=== PATIENT | male | born 1945 | race Caucasian/White ===

== ENCOUNTER 2016-12-14 18:20 | Emergency (ER) | payer MEDICARE ==
[~2016-12-14] VITALS: Ht 188 cm; Wt 65.3 kg
--- NOTE | 2016-12-14 19:53 | NUR ---
I got a call that ER team had been called. Got here at 7:05. Pt had fallen and was having trouble breathing. His and son with him. Had prayer with them and talked with family members in waiting room. Pt is a life-long smoker who has never seen a doctor. Stayed with family until pt life flighted to [facility]. Prayed with them and life flight crew. Son and were going to go up to [facility].
== END 2016-12-14 20:09 | disposition short-term general hospital (02) ==
LOC: ED 18:20
DX: S06.5X9A Traumatic subdural hemorrhage with loss of consciousness of unspecified duration, initial encounter (principal); R40.4 Transient alteration of awareness; W18.09XA Striking against other object with subsequent fall, initial encounter; Y93.9 Activity, unspecified; Y92.9 Unspecified place or not applicable; Y99.9 Unspecified external cause status; F17.210 Nicotine dependence, cigarettes, uncomplicated; F10.20 Alcohol dependence, uncomplicated; Y90.0 Blood alcohol level of less than 20 mg/100 ml
CPT/HCPCS: 31500; 31720; 70450; 71010; 80053; 81001; 84484; 85025; 85610; 85730; 94799; 96374; 96375; 99291; G0480; J2060; J2405; J2704

== ENCOUNTER 2018-07-21 10:03 | Inpatient (IN) | payer MEDICARE ==
[~2018-07-21] VITALS: Ht 188 cm; Wt 71.2 kg
[2018-07-21] MEDS ORDERED: DAILY MULTIPLE1 EACH PO (11:49)
[2018-07-21] MEDS ORDERED: FOLIC ACID-VIT1 EAC1 PO (11:51)
[2018-07-21] MEDS ORDERED: OMEPRAZOLE20 MG PO (11:51)
[2018-07-21] MEDS ORDERED: VITAMIN B-1100 M1 PO (11:52)
[2018-07-21] MEDS ORDERED: VITAMIN C500 M5 PO (11:53)
[2018-07-21] MEDS ORDERED: MELADOX3 MG PO (11:53)
[2018-07-21] MEDS ORDERED: FIBER0.52 GM PO (11:53)
[2018-07-21] MEDS ORDERED: FLOMAX0.4 MG PO (11:55)
[2018-07-21] MEDS ORDERED: CITALOPRAM HBR20 MG PO (11:56)
--- NOTE | 2018-07-21 13:38 | NUR ---
IV SITE INTACT, NO REDNESS OR SWELLING NOTED, PT DENIES PAIN AT SITE, FLUSHES EASILY. PT IS ALERT AND ORIENTED X4. PT RATES PAIN AT 3/10 IN RT HIP. PT ABLE TO ANSWER QUESTIONS EASILY. PT DENIES NAUSEA AND SOB AT THIS TIME.
--- NOTE | 2018-07-21 15:05 | NUR ---
CALLED TO CLARIFY IF BUCKS TRACTION NEEDED FOR PT. ORDER GIVEN TO PLACE BUCKS TRACTION FOR 5 TO 10 LBS.
--- NOTE | 2018-07-21 15:21 | NUR ---
BUCKS TRACTION IN PLACE WITH 10 LB OF WEIGHT. PT YOLETTE WELL HOWEVER REQUESTS PAIN MEDICATION FOR 5/10 RT HIP PAIN. 0.5 MG IV DILAUDID GIVEN. PT ALERT AND ORIENTED X4. PT DENIES NAUSEA AND SOB AT THIS TIME.
--- NOTE | 2018-07-21 16:01 | NUR ---
PT REPORTS PAIN IS NOW AT 2/10, STATES THIS IS ACCEPTABLE FOR HIM.
--- NOTE | 2018-07-21 16:50 | NUR ---
MED REC COMPLETE
--- NOTE | 2018-07-21 17:05 | NUR ---
PT WAS EXPECTING TO RETURN HOME UPON DC, BUT WE DISCUSSED THAT WOULD DEPEND ON HOW WELL HE IS DOING AND WHETHER HE IS WT BEARING OR NOT. HE STATES HIS IS AN INVALID AND IS CURRENTLY STAYING AT AN AUNTS HOUSE SHE IS UNABLE TO CARE FOR HERSELF OR HIM. THEN HE SAID WELL I'LL JUST GO HOME AND MY CAN HELP ME. THEN SAID WELL BRADEN SHE IS HAVING TO STAY WITH HER AUNT I GUESS I CAN'T GO HOME THEN. WE DISCUSSED SNF PLACEMENT AND HE SEEMS AMEENABLE TO THAT..
--- NOTE | 2018-07-21 17:47 | NUR ---
YULIANA HOSE IN PLACE ON BILAT LEGS, SCD ON LEFT LOW LEG WITH HEAL PROTECTOR. RT LEG IN BUCKS TRACTION. PT PREMEDICATED WITH 0.5 MG IV DILAUDID PRIOR TO PLACING YULIANA HOSE. PT REPORTS SOME RELIEF WITH THE BUCKS TRACTION IN PLACE. PT KNEES LOCKED OUT ON BED. PT REPOSITIONED UP IN BED FOR DINNER. PT WELL ABLE TO USE CALL LIGHT, REMAINS ALERT AND ORIENTED X4.
--- NOTE | 2018-07-21 17:55 | NUR ---
PT SITTING UP IN BED EATING DINNER AND WATCHING TV.
--- NOTE | 2018-07-21 19:28 | NUR ---
3% SALINE SOLUTION IS OFF AT THIS TIME.
--- NOTE | 2018-07-21 19:46 | NUR ---
PATIENT IS RESTFUL WATCHING TV, BREATHING IS EVEN AND UNLABORED. REPORTS 1/10 PAIN IN RIGHT HIP AND STATES "I AM FEELING PRETTY GOOD RIGHT NOW." DENIES NEEDS AT THIS TIME. BUCKS TRACTION IN PLACE TO RIGHT LOWER EXTREMITY, PERIPHERAL PULSES WELL FELT IN BLE, CAP REFILL <3 SECONDS, CMS INTACT. ALERT AND ORIENTED X4. CALL LIGHT WITHIN REACH.
--- NOTE | 2018-07-21 21:01 | NUR ---
PATIENT RESTFUL WITH EYES CLOSED, BREATHING IS EVEN AND UNLABORED, FLACC SCORE OF 0. CALL LIGHT WITHIN REACH.
--- NOTE | 2018-07-21 21:47 | NUR ---
PATIENT IS NOT DRINKING FLUIDS, STATES "I HAVE NEBER BEEN MUCH OF A WATER DRINKER AT HOME. I LIKE TO DRINK ENSURES." PROVIDED ENSURE TO PATIENT, ENCOURAGED FLUID INTAKE DUE TO NO IVF INFUSING, ENCOURAGED TO DRINK WATER WELL, PATIENT IS AGREABLE. DENIES NEEDS AT THIS TIME.
--- NOTE | 2018-07-21 22:05 | NUR ---
RECEIVED TELEPHONE ORDER FROM DR. PURI FOR 3% SALINE TO BE STARTED AGAIN AT 23 CC/HR, TURNED OFF AT 0145, AND REDRAW LABS AT 0200.
--- NOTE | 2018-07-21 22:20 | NUR ---
PATIENT REPORTS 2/10 PAIN IN RIGHT HIP, 0.5 MG IV PRN DILAUDID GIVEN. PATIENT DENIES FURTHER NEEDS. RR 20, BREATHING EVEN AND UNLABORED, SPO2 98% ON ROOM AIR. CALL LIGHT WITHIN REACH.
--- NOTE | 2018-07-21 23:10 | NUR ---
PERIPHERAL PULSES WELL FELT IN ALL EXTREMITIES, CAP REFILL <3 SECONDS, BUCKS TRACTION REMAINS INTACT, NO SWELLING TO RIGHT LEG, CMS INTACT.
--- NOTE | 2018-07-21 23:10 | NUR ---
NOTIFIED DR. PURI THAT PATIENT IS HYPOTENSIVE WITH SYSTOLIC BETWEEN 66 AND 74 AND MAP <50 CONFIRMED WITH MANUAL BP. NOTED THAT PATIENT RECEIVED 0.5 MG IV DIALUDID AT 2217. ORDER FOR 1L LR BOLUS OVER ONE HOUR AND DC IV DILAUDID, DR. PURI STATES HE WILL PUT IN NEW ORDERS FOR PAIN MANAGEMENT. PATIENT IS RESTFUL, BREATHING IS UNLABORED, RR BETWEEN 10 AND 12, SPO2 95% ON ROOM AIR. ORAL TEMPERATURE OF 97.9 NOTED, HR BETWEEN 62 AND 67.
--- NOTE | 2018-07-22 00:30 | NUR ---
BUCKS TRACTION WEIGHT BAGS NOTED TO BE ON GROUND, RIGHT LEG REMAINS IN ALIGNMENT, PATIENT DENIES PAIN, PERIPHERAL PULSES WELL FELT, CMS REMAINS INTACT. WITH ASSISTANCE FROM RADHA STONE AND RADHA ARNOLD, BUCKS TRACTION PLACED BACK IN PROPER POSITION.
--- NOTE | 2018-07-22 01:05 | NUR ---
PATIENT REPORTS 5/10 PAIN IN RIGHT HIP, 5 MG PRN PO OXYCODONE GIVEN. PATIENT DENIES FURTHER NEEDS. BUCKS TRACTION REMAINS IN PROPER POSITION. ANTIEMBOLIC STOCKING TO BLE, SCD AND HEEL PROTECTOR TO LEFT LEG ONLY. 3% SALINE CONTINUES TO INFUSE. CALL LIGHT WITHIN REACH.
--- NOTE | 2018-07-22 02:44 | NUR ---
RESTFUL WITH EYES CLOSED, BREATHING IS EVEN AND UNLABORED, FLACC SCORE OF 0. BUCKS TRACTION REMAINS INTACT. CALL LIGHT WITHIN REACH.
--- NOTE | 2018-07-22 04:15 | NUR ---
NOTIFIED DR. PURI THAT PATIENT HAS SODIUM OF 123, 3% SALINE TO BE STARTED AT 23 CC/HR AGAIN, TURN OFF AT 0745, REDRAW SODIUM AT 0800.
--- NOTE | 2018-07-22 04:30 | NUR ---
PATIENT REPORTS 3/10 PAIN IN RIGHT HIP, PRN 5MG OXYCODONE GIVEN. BUCKS TRACTION REMAINS INTACT AND IN PROPER POSITION. DENIES FURTHER NEEDS. CMS INTACT. CALL LIGHT WITHIN REACH.
--- NOTE | 2018-07-22 06:25 | NUR ---
PATIENT REPORTS 5/10 PAIN IN RIGHT HIP, PRN OXYCODONE GIVEN 5MG. DENIES FURTHER NEEDS AT THIS TIME. BREATHING IS EVEN AND UNLABORED, VITALS WNL. CALL LIGHT WITHIN REACH.
--- NOTE | 2018-07-22 07:53 | EKG ---
[facility] [address] [place] [id number] Signed Normal sinus rhythm Normal ECG No previous ECGs available Confirmed by NAOMI PURI MD ([id number]) on 07/22/2018 7:53:22 AM Electronically Signed By: NAOMI PURI MD 07/22/18 0753 PATIENT NAME: PHOENIX SERNA Electrocardiogram DATE OF : 49 PHYSICIAN: NAOMI PURI MD REPORT #: [id number] REPORT IS CONFIDENTIAL AND NOT TO BE RELEASED WITHOUT AUTHORIZATION
--- NOTE | 2018-07-22 09:47 | NUR ---
CHECKED IN WITH PATIENT AT 0900. PATIENT COMPLAING OF DISCOMFORT IN RIGHT HIP. UNHOOKED PATIENT FROM BUCKS TRACTION AND REPOSITIONED LEG TO SLIGHTLY FLEX WITH A PILLOW UNDER THE KNEE TO RELIEVE PATIENTS DISCOMFORT. PATIENT STATED PAIN WAS AN 8/10. AFTER REPOSITIONING CHECKED PEDAL AND TIBIAL PULSE AFTER REPOSITIONING PULSES WERE STRONG AND THERE WAS GOOD PERFUSION. PATIENT DOES NOT HAVE ANY OTHER QUESTIONS AT THAT TIME. AT 930 FOLLOWED UP WITH PATIENT TO DETERMINE IF REPOSITIONING IMPROVED HIS PAIN. PATIENT STATED HE WAS STILL IN PAIN BUT FEELS THE REPOSITIONG DID HELP. PATIENT DID NOT APPEAR TO BE IN DISTRESS BUT STILL COMPLAINED OF DISCOMFORT. INFORMED RN. PATIENT INFORMED NEXT DOSE OF PAIN MEDICATION WOULD BE GIVEN AT 1030.
--- NOTE | 2018-07-22 09:47 | NUR ---
CALLED FOR CONSULT TO BE PUT IN FOR ANESTHESIA TO PLACE A FACIA BLOCK. CALLED OR CHARGE LEXI, SHE WILL PASS THE CONSULT ON TO SILAS PIERRE.
--- NOTE | 2018-07-22 11:22 | NUR ---
CONTACTED [facility] FOR PATIENT TRANSFER AT 1000. SPOKE WITH RAFIQ GARCIA FOR REPORT. BEFORE TRANSFERRING PATIENT HANNAH ROSEN, CAME UP AND DID A NERVE BLOCK ON PATIENTS RIGHT HIP. PATIENT APPEARED TO TOLERATE WELL AND HAD NO QUESTIONS AFTER MOVING TO [facility]. DISTAL PEDAL PULSE WAS PRESENT AND STRONG. PATIENT WAS IN A POSITIVE MOOD. HE CONTACTED HIS SPOUSE AND CAREGIVER TO LET THEM KNOW OF NEW ROOM LOCATION.
--- NOTE | 2018-07-22 14:44 | NUR ---
1440 RN TO ROOM DUE TO PT CALLING SPINNER FIXER LIGHT, PT REPORTS PAIN IS INCREASING. PT RATES PAIN IN RIGHT HIP 3-4/10, TOLERABLE LEVEL IS 1-2/10. PAIN MEDICATION GIVEN PER EMAR. PT REPORT NUMBNESS IN RIGHT UPPER LEG, EXSPECTED DUE TO BLOCK. CMS WNL. CALL LIGHT WITHIN REACH AND PT DENIES ANY OTHER CONCERNS AT THIS TIME.
--- NOTE | 2018-07-22 15:23 | NUR ---
PT RESTING SUPINE IN BED, STATES HE IS COMFORTABLE. CAP REFILL <1 SECOND TO RIGHT FOOT. SENSATION ALSO INTACT DISTAL TO R FOOT. CALL LIGHT AND H20 IN REACH. VSS
--- NOTE | 2018-07-22 15:50 | NUR ---
Pt given 200 mls of chicken broth and crackers per request. Call light and h20 in reach. no further concerns/needs voiced.
--- NOTE | 2018-07-22 18:03 | NUR ---
PATIENT IN BED ON THE PHONE. CALL LIGHT IN REACH. NO FURTHER NEEDS AT THIS TIME.
--- NOTE | 2018-07-22 18:11 | NUR ---
CALL RECEIVED FROM DR MCDONALD. NEW ORDERS RECEIVED FOR IV ANCEF 2GMS ELECTRICAL ASSISTANT TO OR AND 1GM TRANSANXEMIC ACID IV ELECTRICAL ASSISTANT TO OR. CONSENT FOR RIGHT BIPOLAR HEMIARTHROPLASTY ALSO TO BE PLACED IN CHART. NO FURTHER ORDERS RECEIVED AT THIS TIME. WAS ALSO UPDATED ON NEW LAB RESULT OF 125 FOR SERUM SODIUM AND OF ORDERS BY DR PURI FOR IV SALINE 3% AT 23ML/HR TO RUN THROUGH 1944.
--- NOTE | 2018-07-22 18:47 | NUR ---
Pt resting supine in bed with hob elevated to semi fowlers. Per pt request right heel protector removed and right LE floated on pillow and pt states he is comfortable. blanket provided per pt request. distal cms intact to right foot. Pt continues to refuse bucks traction as he states it is not comfortable. family at bedside.
--- NOTE | 2018-07-22 19:20 | NUR ---
RECEIVED REPORT FROM RADHA CONROY. pt ALERT AND AWAKE. REQUESTED ASSISTANCE ADJUSTING RIGHT LEG FOR COMFORT. DENIES PAIN AT THIS TIME. RADHA CROUCH PLACED NEW IV. CALL LIGHT WITHIN REACH
--- NOTE | 2018-07-22 19:53 | NUR ---
pt REQUESTED PRN PAIN PILL FOR 2/10 PAIN, GIVEN (SEE MAR). CALL LIGHT WITHIN REACH.
--- NOTE | 2018-07-22 20:31 | NUR ---
PER PT REQUEST WE BOOSTED HIM UP IN HIS BED. HE WANTS NOTHING MORE AT THIS TIME. CALL LIGHT IN REACH.
--- NOTE | 2018-07-22 20:33 | NUR ---
HELPED BOOST PT IN BED AND FIXED SCD PT SAID IT WAS NOT PUMPING MUCH. CALL LIGHT IS CLOSE AND PT DENIES FURTHER NEEDS.
--- NOTE | 2018-07-22 20:44 | NUR ---
PT CALLED NEEDING HELP FIGURING OUT HOW TO TURN OFF DIFFERENT LIGHTS IN HIS ROOM AND ON THE BED. ASSISTED PT AND HE DENIES FURTHER NEEDS. CALL LIGHT IS CLOSE.
--- NOTE | 2018-07-22 21:28 | NUR ---
RECEIVED CALL FROM DR PURI NEW MEDICATIONS STARTED PER ORDERS (SEE MAR). pt UPDATED ON PLAN OF CARE. CALL LIGHT WITHIN REACH.
--- NOTE | 2018-07-22 21:38 | NUR ---
VITALS AND I&OS DONE AND CHARTED. BEDSIDE TABLE AND CALL LIGHT IN REACH.
--- NOTE | 2018-07-22 21:43 | NUR ---
PT CALLED ME BACK INTO ROOM TO ADJUST HIS FOOT. HE WAS COMFORTABLE WHEN I LEFT THE ROOM,NEEDING NOTHING MORE.
--- NOTE | 2018-07-22 21:44 | NUR ---
PT CALLED [facility] ASKING FOR A WARM BLANKET. I GAVE IT TO HIM. PT NEEDS NOTHING MORE AT THIS TIME.
--- NOTE | 2018-07-22 22:43 | NUR ---
ASSESSMENT DONE. pt ALERT AND ORIENTED, REQUIRED PLAN OF CARE TO BE REPEATED FREQUENTLY. CMS INTACT, CAP REFILL GOOD. REQUIRED RIGHT LEG TO BE ADJUSTED FREQUENTLY. PRN PAIN MED FOR 2/10 PAIN IN RIGHT FOOT (SEE MAR). IVF INFUSING. AES ON RIGHT LEG. AES, SCD, AND HEEL PROTECTOR ON LEFT LEG. CALL LIGHT WITHIN REACH.
--- NOTE | 2018-07-22 23:47 | NUR ---
CALL LIGHT ON. IV PUMP BEEPING, ERROR CLEARED. CALL LIGHT WITHIN REACH. NO REQUESTS AT THIS TIME.
--- NOTE | 2018-07-23 01:05 | NUR ---
CALL LIGHT ON. pt HAD QUESTIONS ABOUT PLAN OF CARE, UPDATED. ALL QUESTIONS ANSWERED.
--- NOTE | 2018-07-23 01:48 | NUR ---
CALL LIGHT ANSWERED, PT REQUESTING RIGHT LEG TO BE REPOSITIONED, LEG REPOSITIONED PER PT'S REQUEST FOR COMFORT, PT C/O 10 PAIN AFTER REPOSITIONING REQUESTING PRN PAIN MEDICATION, PRN PAIN MEDICATION PROVIDED PER EMAR, TOLERATED WELL, EDUCATION PROVIDED REGARDING MEDICATION, PT DENIES FURTHER NEEDS AT THIS TIME, CALL LIGHT WITHIN REACH, FALL PRECAUTIONS IN PLACE.
--- NOTE | 2018-07-23 01:54 | NUR ---
0145 pt SL PER ORDERS. pt NPO AT MIDNIGHT. UPDATED ON PLAN OF CARE. CALL LIGHT WITHIN REACH.
--- NOTE | 2018-07-23 02:59 | NUR ---
CALLED DR PURI WITH LAB RESULTS PER REQUEST. ORDERED 3% SODIUM BE CONTINUED UNTIL 0745 AND LAB WILL REDRAW AT 0800. ORDERS ENTERED.
--- NOTE | 2018-07-23 03:12 | NUR ---
IVF STARTED. pt STATES PAIN IS "BARELY THERE" 06/09. CALL LIGHT WITHIN REACH.
--- NOTE | 2018-07-23 03:19 | NUR ---
CALL LIGHT ON. pt REQUESTED BATHROOM DOOR BE CLOSED, DONE. CALL LIGHT WITHIN REACH.
--- NOTE | 2018-07-23 05:03 | NUR ---
pt RESTED ON AND OFF. DORMAN CATH. NPO AT MIDNIGHT. BED REST FOR FRACTURE. KHUSHI CONSULTING FOR HYPONATREMIA, 3% SODIUM CHLORIDE RUNNING AT 23MLS/HR TO BE FINISHED AT 0745. LAB DRAW AT 0800. [place] INTACT. BLOCK CONTROLLING PAIN WITH PRN PAIN MEDS X2. FORGETFUL. USES CALL LIGHT FREQUENTLY.
--- NOTE | 2018-07-23 06:05 | NUR ---
RETURNED CALL FROM DR MCDONALD. UPDATED ON SODIUM LEVELS. HE WILL REVIEW 0800 LABS. NO NEW ORDERS AT THIS TIME.
--- NOTE | 2018-07-23 06:22 | NUR ---
ADMINISTERED OXYCODONE FOR PAIN. PT DENIES FURTHER NEEDS AND CALL LIGHT IS CLOSE.
--- NOTE | 2018-07-23 07:30 | NUR ---
REPORT RECEIVED FROM RADHA RADFODR. PT RESTING IN BED. DENIES PAIN AND NAUSEA. YULIANA CARLOS AND SCD'S IN PLACE. 3% SODIUM CHLORIDE CONTINUES TO RUN, TO BE STOPPED FOR NEXT LAB DRAW AT 0745. PT VISITING WITH FAMILY. BED RAILS UP. CALL LIGHT WITHIN REACH.
--- NOTE | 2018-07-23 07:45 | NUR ---
3% SODIUM CHLORIDE STOPPED. PIV SALINE LOCKED.
--- NOTE | 2018-07-23 07:53 | NUR ---
MORNING ASSESSMENT AND MEDICAITONS DUE. PT CONTINUES TALKING WITH FAMILY, DENIES PAIN AND NAUSEA. ASSESSMENT DONE. CMS INTACT. PT ORIENTED X4 BUT CONFUSED AND FORGETFUL AT TIMES, UNSURE OF TIME OF DAY, STATES LABS HAVE "NEVER BEEN DONE" AND PT UNABLE TO REMEMBER WHEN HE CAME TO THE HOSPITAL. FAMILY FREQUENTLY CORRECTING PT. PT COMPLIANT WITH CARES AND EASILY REORIENTED. LAB EXPECTED AT 0800 FOR FOLLOW UP LAB DRAW. MEDCATIONS GIVEN WITH A SMALL SIP OF WATER, PT REMAINS OTHERWISE NPO. PT UPDATED ON PLAN OF CARE. PT AND FAMILY VERBALIZE UNDERSTANDING. BILATERAL YULIANA HOSES AND SCD TO LEFT LEG IN PLACE. DORMAN DRAINING CLEAR YELLOW URINE. NO ADDITIONAL REQUESTS OR COMPLAINTS AT THIS TIME. BED RAILS UP. CALL LIGHT WITHIN REACH. BED ALARM ON.
--- NOTE | 2018-07-23 08:05 | NUR ---
patient is NPO, waiting surgery, rescheduled for 1300, patient needed no other assistance at this time
--- NOTE | 2018-07-23 10:00 | NUR ---
NEW ORDERS AND PAIN MEDICATION DUE. PT REPORTS 3/10 PAIN IN HIP AND ANKLE. 3% NS RESTARTED AT 40ML/HR. PT AND FAMILY UPDATED ON PLAN OF CARE. PT AND FAMILY VERBALIZE UNDERSTANDING AND STATE THEIR QUESTIONS HAVE BEEN ANSWERED. NO ADDITIONAL REQUESTS OR COMPLAINTS AT THIS TIME. BED RAILS UP. CALL LIGHT WITHIN REACH. BED ALARM ON.
--- NOTE | 2018-07-23 10:15 | NUR ---
LAB TECHNITIAN INFORMED THIS RN OF NEW LAB VALUES AFTER LABS WERE RE-RUN. DR. PURI AWARE. DR. MCDONALD CALLED, STATES SURGERY WILL REMAIN CANCELED FOR TODAY. NEW 3% SALINE ORDERS PLACED. RATE CHANGED PER MD ORDER. FAMILY UPDATED. NO ADDITIONAL REQUESTS OR COMPLAINTS. CALL LIGHT WITHIN REACH.
--- NOTE | 2018-07-23 11:06 | NUR ---
PT CALL LIGHT ON. PT ASKS WHEN NEXT PAIN MEDICAITON IS DUE. THIS RN TO ROOM. PT REPORTS 2/10 PAIN AND STATES HE IS "JUST CURIOUS." 2PM TIME WRITTEN ON BOARD. PT ENCORUAGED TO TAKE 2ND OXYCODONE TABLET. PT DENIES NEED AND STATES HE DOES NOT WANT ADDITIONAL PAIN MEDICATION AT THIS TIME. BED RAILS UP. CALL LIGHT WITHIN REACH.
--- NOTE | 2018-07-23 11:14 | NUR ---
PT CALL LIGHT ON. PT CONTINUES TO REPORT PAIN, NOW AT 5/10 IN RIGHT HIP. PT ENCORUAGED TO TAKE 2ND TAB OF OXY TO TITRATE TO FULL DOSE. PT AGREES. SEE MAR FOR MEDICATION GIVEN. PT ENCORUAGED TO REST. BED RAILS UP. CALL LIGHT WITHIN REACH. BED ALARM ON.
--- NOTE | 2018-07-23 12:24 | NUR ---
NOON ASSESSMENT DUE. THIS RN TO BEDSIDE. PT REPORTS 0/10 PAIN STATING "IT ALL FEELS FINE RIGHT NOW." PT DENIES NASUEA AND STATES "I'M TOO FULL FOR LUNCH." ASSESSMENT DONE. CMS INTACT. SCD TO LEFT LEG IN PLACE. BILATERAL YULIANA HOSE IN PLACE. NO ADDITIONAL REQUESTS OR COMPLAINTS AT THIS TIME. BED RAILS UP. CALL LIGHT WITHIN REACH. BED ALARM ON.
--- NOTE | 2018-07-23 13:36 | NUR ---
THIS RN TO ROOM TO CHECK ON PT. PT RESTING WITH EYES CLOSED, RR = 16 BPM. BED RAILS UP. CALL LIGHT WITHIN REACH.
--- NOTE | 2018-07-23 14:44 | NUR ---
THIS RN TO ROOM TO CHECK ON PT. PT REPORTS 1/10 PAIN AND DENIES NAUSEA. PT ASSISTED WITH ORDERING DINNER. VITALS TAKEN. DORMAN EMPTIED OF CLEAR YELLOW URINE. PRN PAIN MEDICATION GIVEN PER PT REQUEST. (SEE MAR). PT DENIES ADDITIONAL REQUESTS OR COMPLAINTS. CALL LIGHT WITHIN REACH. BED ALARM ON. BED RAILS UP.
--- NOTE | 2018-07-23 16:07 | NUR ---
AFTERNOON ASSESSMENT DUE. THIS RN TO BEDSIDE. VISITING WITH SON. REPORTS 5/10 PAIN "WHEN I MOVE." AND REQUESTS 2ND PAIN MEDICATION TO TITRATE TO THE FULL DOSE. SEE MAR FOR MEDICATION GIVEN. ASSESSMENT DONE. CMS IN TACT. PT REPORTS NOMRAL SENSATION, EXTREMITIES WARM TO TOUCH. SCD TO LEFT LEG IN PLACE. YULIANA HOSE IN PLACE. PT DEMONSTRATES USE OF INCENTIVE SPIROMETER, REACES 2500. NEW ORDERS TO INCREASE 3% SODIUM CLORIDE TO 40ML/HR. RATE INCREASED ORDERED. PT AND FAMILY UPDATED ON PLAN OF CARE. NO ADDITIONAL REQUESTS OR COMPLAINTS AT THIS TIME. BED RAILS UP. CALL LIGHT WITHIN REACH. BED ALARM ON.
--- NOTE | 2018-07-23 17:38 | NUR ---
THIS RN TO ROOM TO CHECK ON PT. PT REPORTS 2/10 PAIN AND DENIES NASUEA. PT FINISHING DINNER, ATE 100%. VITALS TAKEN. DORMAN EMPTIED OF 200ML CLEAR YELLOW URINE. PT REPOSITIONED FOR COMFORT. CMS INTACT. PT DEMONSTRATES USE OF INCENTIVE SPIROMETER, REACHES 2500. BED RAILS UP. CALL LIGHT WITHIN REACH. BED ALARM ON.
--- NOTE | 2018-07-23 17:44 | NUR ---
PT HERE FOR R HIP FX. SURGERY DELAYED TODAY R/T LAB VALUES. SURGERY PLANNED FOR TOMORROW GIVEN LAB RESULTS. PT TO BE NPO AT MIDNIGHT. DORMAN CATHETER IN PLACE, QUANTITY SUFFICIENT. 3% NS INFUSING. CMS INTACT THIS SHIFT. YULIANA HOSE AND SCD'S IN PLACE. 0-5/10 PAIN, PRN PAIN MEDICATIONS GIVEN Q4 HR THIS SHIFT. PAIN MANAGEMENT EDUCATION DONE. PT ADHERING TO 1200ML FLUID RESTRICTION. PT USES CALL LIGHT APPROPRAITLY. BED ALARM ON.
--- NOTE | 2018-07-23 19:30 | NUR ---
REPORT RECEIVED, PT RESTING IN BED, RIGHT LEG ELEVATED ON BLANKETS, SCD TO LEFT LEG, DORMAN CATH DRAINING WNL, IV FLUIDS INFUSING PER EMAR WNL, NO REQUESTS AT THIS TIME, CALL LIGHT WITHIN REACH, FALL PRECAUTIONS IN PLACE.
--- NOTE | 2018-07-23 20:00 | NUR ---
IN ROOM TO SL IV BEFORE LAB DRAW, PT REQUESTING PRN PAIN MEDICATION, PT TOLERATED WELL, PT REPOSITIONED IN BED FOR COMFORT, ASSESSMENT COMPLETE, LS CLEAR, PT USING IS FREQUENTLY. OCCASIONAL DRY COUGH NOTED, PT ON RA, NO C/O SOB/CP, RIGHT LEG ELEVATED ON BLANKETS PER PT'S REQUEST, PT REQUESTING NOT TO HAVE TRACTION PLACED ON RLE, ALSO REQUESTING TO NOT HAVE HEEL PROTECTOR ON RIGHT FOOT AND PREFERRING TO HAVE FOOT ELEVATED OFF OF BED, SCD TO LEFT LEG. PULSES STRONG AND EQUAL THROUGHOUT, CAP REFILL WNL IN BLE. PT DENIES ANY FURTHER NEEDS AT THIS TIME, CALL LIGHT WITHIN REACH, FALL PRECAUTIONS IN PLACE.
--- NOTE | 2018-07-23 21:52 | NUR ---
DR. PURI NOTIFIED OF PT'S SODIUM LEVEL OF 126, DR. PURI STATED TO KEEP SODIUM OFF FOR NOW AND TO WAIT FOR FURTHER LABS HE IS GOING TO HAVE THE SODIUM LEVEL REDONE. NO FURTHER ORDERS AT THIS TIME.
--- NOTE | 2018-07-23 22:45 | NUR ---
DISCUSSED PT'S SODIUM LEVEL WITH DR. PURI, NEW ORDER FOR 3%NS TO BE INFUSED AT 45 ML/HR, NO FURTHER NEEDS.
--- NOTE | 2018-07-23 23:00 | NUR ---
IN ROOM TO ADMIN SCHEDULED MEDS, PT AWAKE, DROWSY, CONFUSED TO DATE/TIME, PT REORIENTED TO DATE/TIME, PT REMAINS ORIENTED TO PERSON/PLACE/EVENT, REASSURANCE PROVIDED, PT ENCOURAGED TO REST, AND TRY TO SLEEP, PT EDUCATED REGARDING PAIN MANAGEMENT AND UPCOMING AVAILABLE TIMES FOR PRN PAIN MEDICATION, PT AGREEABLE, DENIES SIGNIFICANT PAIN AT THIS TIME RATE 1/10, NO NEEDS AT THIS TIME. WILL REASSESS. CALL LIGHT WITHIN REACH.
--- NOTE | 2018-07-24 00:01 | NUR ---
PT RESTING IN BED, EYES CLOSED, BREATHS EVEN, UNLABORED, NO REQUESTS AT THIS TIME, CALL LIGHT WITHIN REACH, FALL PRECAUTIONS IN PLACE. 3%NS INFUSING PER EMAR WNL. DORMAN CATH DRAINING WNL. PT'S RIGHT LEG ELEVATED ON BLANKETS PER PT'S REQUEST, SCD TO LEFT LEG W/HEEL PROTECTOR.
--- NOTE | 2018-07-24 01:28 | NUR ---
PT RESTING IN BED, EYES CLOSED, BREATHS EVEN, UNLABORED, NO REQUESTS AT THIS TIME, 3%NS INFUSING PER EMAR WNL, CALL LIGHT WITHIN REACH. NO SIGNS OF DISCOMFORT OR RESTLESNESS. FALL PRECAUTIONS IN PLACE. BED ALARM ON.
--- NOTE | 2018-07-24 02:59 | NUR ---
PT RESTING IN BED, EYES CLOSED, BREATHS EVEN, UNLABORED, NO REQUESTS AT THIS TIME, RR 16, IV FLUIDS INFUSING PER EMAR WNL, ON RA, NO SIGNS OF DISCOMFORT OR RESTLESNES. CALL LIGHT WITHIN REACH.
--- NOTE | 2018-07-24 04:10 | NUR ---
PT RESTING IN BED, EYES CLOSED, BREATHS EVEN, UNLABORED, RR 18, NO SIGNS OF RESTLESNESS OR DISCOMFORT, CALL LIGHT WITHIN REACH, FALL PRECAUTIONS IN PLACE. 3%NS INFUSING PER EMAR WNL. BED ALARM ON.
--- NOTE | 2018-07-24 06:03 | NUR ---
PT AWAKE, AOX4, DROWSY, BUT EASY TO AROUSE, PT STATES HE CURRENTLY HAS 3/10 PAIN IN RIGHT HIP DESCRIBED A "DULL THROB", ALTHOUGH PT STATES WHEN IT "CATCHES" HIS PAIN INCREASES, PT REQUESTED PRN PAIN MEDICATION, PRN OXYCODONE GIVEN PER EMAR, TOLERATED WELL, EDUCATION PROVIDED REGARDING PAIN MANAGEMENT, PT'S VSS, DORMAN CATH DRAINING WNL, URINE OUTPUT QS, RIGHT LEG ELEVATED ON BLANKETS PER PT'S REQUEST, LEFT LEG HAS SCD ON W/HEEL PROTECTOR, PT ON RA, NO C/O SOB/CP, REMAINS NPO, NO REQUESTS AT THIS TIME, CALL LIGHT WITHIN REACH, FALL PRECAUTIONS IN PLACE, BED ALARM ON. PT'S IV CURRENTLY SL PENDING LAB RESULTS.
--- NOTE | 2018-07-24 06:07 | NUR ---
PT AOX4 THIS SHIFT, APPROPRIATE, FORGETFUL AT TIMES WELL DROWSY DURING THE NIGHT, PT SLEPT THROUGHOUT MOST OF SHIFT, PT RECEIVED PRN PAIN MEDICATION X2 THIS SHIFT FOR PAIN RELATED TO RIGHT HIP, PT'S 20:00 LAB RESULTS SHOWED SODIUM LEVEL OF 129, 3% NS INFUSED PER EMAR WNL, IV SL NOW PENDING 0600 LAB RESULTS. PT USING I.S. WELL, NO C/O SOB/CP, ON RA, VSS, RIGHT LEG ELEVATED ON BLANKETS PER PT'S REQUEST, LEFT LEG HAS SCD/HEEL PROTECTOR ON, DORMAN CATH DRAINING WNL, URINE OUTPUT QS. BED ALARM ON,
--- NOTE | 2018-07-24 06:57 | NUR ---
PT'S SODIUM LAB RETURNED 130, DR. PURI NOTIFIED, DR. PURI INSTRUCTED ME TO NOTIFY DR. MCDONALD WELL STOP THE 3% NS INFUSION. DR. MCDONALD CALLED AND VOICE MAIL LEFT.
--- NOTE | 2018-07-24 07:25 | NUR ---
PT RESTING IN BED WITH HOB IN SEMI FOWLERS POSTION. PT ALERT AND ORIENTED. CALL LIGHT AND H2O IN REACH. BEDSIDE REPORT RECEIVED. PT GIVEN FRESH ICE WATER RLE CMS INTACT. CAP REFILL 2 SECONDS TO RIGHT FOOT. PT DENIES PAIN AT REST. NO NEEDS/CONCERNS VOICED. WHITE BOARD UPDATED.
--- NOTE | 2018-07-24 08:20 | NUR ---
Pt's chlorhexadine presurgical wipe down was completed, TXA, Ancef 2gm iv and LR with straight tubing given to [employer]ICE [employer]S DRIVER's for administration in OR. SERVICE [employer]S DRIVER's and Roderick YOUNG took patient to OR at this time.
--- NOTE | 2018-07-24 10:06 | NUR ---
[facility]24/18 [facility] PT ARRIVES TO PACU FROM OR ON 8 L O2 VIA MASK WITH ORAL AIRWAY IN PLACE. PT RECEIVED REGIONAL ANESTHESIA WITH SPINAL. ON-Q PUMP AND JOSEMANUEL DRESSING APPLIED IN OR. PT NONAROUSABLE AND DOES NOT OPEN EYES TO VERBAL STIMULUS. SUPERVISOR POLISHING AT BEDSIDE. VSS. SATS 100% ON [address] 0945- PT OPENS EYES AND ORAL AIRWAY REMOVED. PT LEFT ON 8 L O2 VIA MASK WITH SATS 100%. PT DENIES PAIN/NAUSEA. VSS. 0950- PT TITRATED TO RA WITH SATS >90%. XRAY AT BEDSIDE. VSS. PT DENIES PAIN/NAUSEA. CRYO CUFF APPLIED TO RIGHT HIP. SCDS ON AND APPLIED. ON-Q AND JOSEMANUEL DRESSING INTACT. SPINAL AT T-10. 0955- PT AWAKE AND TALKING TO STAFF. PT DENIES PAIN/NAUSEA. RA SATS 98%. VSS. DRESSING C/D/I
--- NOTE | 2018-07-24 10:20 | NUR ---
Pt back from OR. Bedside report received from RADHA Fischer. Pt alert and oriented x4. Numbness persists to right foot and pt still unable to wiggle toes. cap refill 1 second to right foot. Assessment completed. Pt denies pain or SOB. Call light nad h2o in reach. VSS.
--- NOTE | 2018-07-24 11:28 | NUR ---
IN TO ANSWERE CALL LIGHT PT CONCERNED THAT SCD'S ARE NOT WORKING, CONNECTIONS VERIFIED TO BE IN TACT AND PACHINE TURNED OFF AND BACK ON AND APPEARS TO BE FUNCTIONING PROPERLY. CALL LIGHT AND H20 IN REACH. PT STATES "I GET SO FORGETFULL AND CANT THINK OF ALL THESE LITTLE THINGS UNTIL JUST RIGHT AFTER THE NURSE LEAVES THE ROOM SO THAT'S WHY I KEEP CALLING". PT WAS PROVIDED WITH A PEN AND PAPER. CAP REFILL 1 SECOND TO RIGHT FOOT. PT DENIES FURTHER NEEDS OR CONCERNS.
--- NOTE | 2018-07-24 14:49 | NUR ---
Pt resting supine in bed, assessment completed. pt denies pain. right lower extremity cms intact. IV abx and tylenol administered. Sen cath emptied of 1600mls. tricia hose, heel protectors, scds and cryo cuff in place.
--- NOTE | 2018-07-24 18:54 | OR ---
[facility] [address], [place] [address] Signed DATE OF OPERATION: 07/24/2018 SURGEON: James Ferris MD PREOPERATIVE DIAGNOSIS: Displaced femoral neck fracture right. POSTOPERATIVE DIAGNOSIS: Displaced femoral neck fracture right. PROCEDURE PERFORMED: Right bipolar hemiarthroplasty. REINFORCING IRON WORKER HELPER: HUNG Neal. Nettie was present for all parts of the procedure. ANESTHESIA: Spinal. BLOOD LOSS: 150 mL. IMPLANTS: [place] size 9 stem, 52 bipolar, +0, 28 mm head. BRIEF HISTORY: [place] is a 72-year-old gentleman who suffered a ground level fall late last week. He was admitted to the hospital with significant hyponatremia and displaced femoral neck fracture. Eventually, the Medicine Service was able to get the sodium up to an acceptable level for anesthesia. Risks and benefits of operative treatment were discussed with him and he elected to proceed. DESCRIPTION OF PROCEDURE: Once consent was obtained, he was taken to the operating room. After adequate anesthesia, he was placed in the left lateral decubitus position. All downside pressure points are well padded. A well-padded axillary roll was placed. The leg was then prepped and draped in a standard sterile fashion. The hip was approached through a 5 inch incision centered over the trochanter. This was carried through skin and subcutaneous tissue. IT band was split longitudinally and the vastus lateralis was split from the tip of the trochanter distally and elevated in a subperiosteal manner Electronically Signed By: JAMES FERRIS MD 07/24/18 1854 PATIENT NAME: PHOENIX SERNA OPERATIVE REPORT DATE OF : 49 REPORT #: [id number] PHYSICIAN: JAMES FERRIS MD PCP: NO PRIMARY CARE PHYSICIAN REPORT IS CONFIDENTIAL AND NOT TO BE RELEASED WITHOUT AUTHORIZATION [facility] [address], [place] [address] Signed around the level of the lesser trochanter. The gluteus medius was split bluntly. Gluteus minimus and capsule were split sharply from the trochanter to the acetabular rim and elevated off the femoral neck. The fracture was a high cervical fracture and a napkin ring of femoral neck was cut and removed and then the femoral head was removed. He was taken to back table measured to 52. The periacetabular soft tissue was cleared and the 52 trial was placed, which fit quite nicely. Attention was then turned to the proximal femur and this was opened using [employer] cutter followed by the Paul awl and then sequentially broached up to a 9. The 9 was found to be well fitting. The 9 stem was then selected and impacted until it was well seated and stable. The +0 head and 52 bipolar were then placed on the stem and the hip was reduced. Leg lengths were found to be equal and had excellent range of motion with 120 degrees of flexion, 30 of internal, and 40 of external rotation. The wound was then copiously irrigated with Irrisept and allowed to set. The Irrisept was then evacuated and the capsule was closed using #2 Vicryl and the On-Q pump was placed percutaneously superior to the hip capsule. The vastus and IT band layers were then closed independently using #2 Stratafix. The subcutaneous tissue with 0 Stratafix, and skin with yfn. The wound was dressed with a JOSEMANUEL wound dressing and he was placed in a hip abduction brace, taken to the recovery room in satisfactory condition. All sponge, needle, and instrument counts were correct. James Ferris MD BA/INOCENCIAL /[id number] Copies: ~ Electronically Signed By: JAMES FERRIS MD 07/24/18 1854 PATIENT NAME: DAPHNEPHOENIX CARMENCITA OPERATIVE REPORT DATE OF : 49 REPORT #: [id number] PHYSICIAN: JAMES FERRIS MD PCP: NO PRIMARY CARE PHYSICIAN REPORT IS CONFIDENTIAL AND NOT TO BE RELEASED WITHOUT AUTHORIZATION
--- NOTE | 2018-07-24 19:37 | NUR ---
RECIEVED CHANGE OF SHIFT REPORT FROM DENG GARCIA. PATIENT LAYING AWAKE IN BED, PATIENT REPORTS PAIN IN RIGHT HIP IS A "3/10". JOSEMANUEL DRAIN FLASHING GREEN LIGHT. WEDGE IN PLACE FOR RIGHT HIP. CRYOCUFF IN PLACE. SCDS ON. DORMAN CATHETER DRAINING YELLOW URINE. ON-Q PUMP IN PLACE AND STILL SET TO 8. WHITE BOARD UPDATED. CALL LIGHT WITHIN REACH. NO MORE NEEDS AT THIS TIME.
--- NOTE | 2018-07-24 20:40 | NUR ---
ASSESSMENT COMPLETE. MEDICATIONS ADMINISTERED PER JUL ORDER. IV ASSESSED TO BE PATENT WNL. JOSEMANUEL DRESSING CDI, NO NEW DRAINAGED NOTED. JOSEMANUEL DRAIN FLASHING GREEN LIGHT. ON-Q PUMP STILL SET AT 8. YULIANA HOSE AND SCDS IN PLACE. WEDGE IN PLACE. CRYOCUFF IN PLACE ON LEFT HIP. PATIENT REPORTS "2/10" "DULL THROBBING" PAIN IN RIGHT CALF NEAR WEDGE. READUSTEDED STRAPS OF WEDGE AROUND LEG, PATIENT REPORTS IMPROVEMENT IN COMFORT. PATIENT DENIES DEFICITS IN SENSATION OF BLE. REPORTS TINGLING IN RLE. CAPILLARY REFILL LESS THAN 2 SECONDS. PATIENT ABLE TO WIGGLE TOES. PATIENT DENIES CHEST PAIN, SOB, OR DIFFICULTY BREATHING. DORMAN CATHETER DRAINING YELLOW URINE. CALL LIGHT WITHIN REACH. NO MORE NEEDS AT THIS TIME. PATIENT REFUSED HEEL PROTECTORS.
--- NOTE | 2018-07-24 21:00 | NUR ---
ROUNDED ON PATIENT LAYING AWAKE IN BED. PATIENT REPORTS "1/10" PAIN IN RLE, PRN PAIN MEDICATION PROVIDER PER JUL ORDER. CALL LIGHT WITHIN REACH. NO MORE NEEDS AT THIS TIME.
--- NOTE | 2018-07-24 21:19 | NUR ---
ROUNDED CHARGE. PATIENT IS RESTING IN BED. CAT BREEDER IN ROOM. PATIENT DENIES ANY COMMENTS, QUESTIONS, OR CONCERNS. PATIENT RATES PAIN AT A 2/10. PATIENT DENIES THE NEED FOR PAIN MEDICATION AT THIS TIME. PATIENT DENIES ANY NEEDS. CALL LIGHT IN REACH.
--- NOTE | 2018-07-24 21:45 | NUR ---
VITALS AND I&OS DONE AND CHARTED. FILLED CRYO. BEDSIDE TABLE AND CALL LIGHT IN REACH. PT NEEDS NOTHING MORE AT THIS TIME.
--- NOTE | 2018-07-24 22:40 | NUR ---
ROUNDED ON PATIENT FOR MEDICATION ADMINSTRATION PER JUL ORDER. IV ASSESSED TO BE LEAKING. NEW 22 GA IV PLACED IN RIGHT FOREARM PER POLICY, PATIENT TOLERATED WELL. UPON RETRIEVING SUPPLIES TO PLACE NEW IV, PATIENT HAD REMOVED OLD IV IN LEFT WRIST, STATING "I WAS TRYING TO HELP", EDUCATION PROVIDED TO PATIENT BY CK RN EDUCATING PATIENT TO ALLOW NURSING STAFF TO CARE FOR IV'S TO ENSURE PATIENT SAFETY, PATIENT EXPRESSED UNDERSTANDING. CALL LIGHT WITHIN REACH. NO MORE NEEDS AT THIS TIME.
--- NOTE | 2018-07-24 23:30 | NUR ---
ROUNDED ON PATIENT. SALINE LOCKED. ASSISTED PATIENT IN REPOSITIONING IN BED PER PATIENT REQUEST. CALL LIGHT WITHIN REACH. NO MORE NEEDS AT THIS TIME.
--- NOTE | 2018-07-25 00:07 | NUR ---
PER PT REQUEST I HELPED HIM WITH HIS CRYO . AND COVERED HIS FEET. PT NEEDS NOTHING MORE AT THIS TIME.
--- NOTE | 2018-07-25 02:20 | NUR ---
ASSESSMENT COMPLETE. PATIENT DENIES PAIN, CHEST PAIN, SOB, OR DIFFICULTY BREATHING. IV ASSESSED TO BE PATENT, WNL. PATIENT REFUSED HEEL PROTECTORS. YULIANA HOSE AND SCD IN PLACE. FRESH ICE PLACED IN CRYOCUFF, CRYOCUFF PLACED ON RIGHT HIP. SMALL DRY DOT OF DRAINAGE NOTED ON ONE SIDE OF JOSEMANUEL DRESSING. CAPILLARY REFILL LESS THAN 2 SECONDS. BLE WARM TO TOUCH. PATIENT DENIES DEFICITS IN SENSATION OF BLE. CATHETER CARE PERFORMED. CALL LIGHT WITHIN REACH. NO MORE NEEDS AT THIS TIME. VITALS AND INTAKE AND OUTPUT RECORDED BY POULTRY CUTTER.
--- NOTE | 2018-07-25 02:29 | NUR ---
VITALS AND I&OS DONE AND CHARTED. BEDSIDE TABLE AND CALL LIGHT IN REACH.
--- NOTE | 2018-07-25 03:15 | NUR ---
ROUNDED ON PATIENT TO ANSWER PATIENT CALL LIGHT. PRN PAIN MEDICATION PROVIDED OT PATIENT PER PATIENT REQUEST. PATIENT REPORTS PAIN A "2/10" IN RLE. PATIENT REQUESTED TO HAVE "ONLY ONE PAIN PILL" AT THIS TIME. STRAPS AROUND WEDGE READJUSTED. CALL LIGHT WITHIN REACH. NO MORE NEEDS AT THIS TIME.
--- NOTE | 2018-07-25 05:10 | NUR ---
PATIENT SLEPT ON AND OFF THROUGHOUT SHIFT. REGULAR DIET. ROOM AIR. DORMAN CATHETER. STRICT I'S AND O'S. 1200 ML FLUID RESTRICTION. CRYOCUFF TO OPERATIVE SITE. ON-Q PUMP, STILL SET TO 8. JOSEMANUEL DRAIN, FLASHING GREEN LIGHT. SMALL DOT OF DRY, RED DRAINAGE PRESENT ON JOSEMANUEL DRESSING. YULIANA HOSE AND SCD'S IN PLACE. PATIENT REFUSED HEEL PROTECTORS. IV ABX X2 THIS SHIFT. PRN PAIN MEDICATION X2 THIS SHIFT. INCENTIVE SPIROMETER AT BEDSIDE. ABDUCTOR WEDGE IN PLACE THROUGHOUT SHIFT.
--- NOTE | 2018-07-25 06:10 | NUR ---
ASSESSMENT COMPLETE. PATIENT REFUSED HEEL PROTECTORS. YULIANA HOSE AND SCDS IN PLACE. ABDUCTOR WEDGE IN PLACE. PATIENT REPORTS PAIN IN RLE IS "2/10". JOSEMANUEL DRESSING ASSESSED, NO NEW DRAINAGE PRESENT. STILL SMALL DRY DOT PRESENT ON JOSEMANUEL DRESSING. JOSEMANUEL DRAIN FLASHING GREEN LIGHT. ON-Q STILL SET AT 8. FRESH ICE PLACED IN CRYOCUFF. CRYOCUFF IN PLACE ON RIGHT HIP. INCENTIVE SPIRMETMER AT BEDISIDE. MEDICATIONS ADMINISTER PER MAR ORDER. POSSESSIONS AT BEDSIDE. CALL LIGHT WITHIN REACH. NO MORE NEEDS AT THIS TIME.
--- NOTE | 2018-07-25 06:11 | NUR ---
VITALS AND I&OS DONE AND CHARTED. GARBAGES EMPTIED. BEDSIDE TABLE AND CALL LIGHT IN REACH.
--- NOTE | 2018-07-25 06:53 | NUR ---
PATIENT IS NOW SL. PATIENT DENIES ANY NEEDS. CALL LIGHT IN REACH.
--- NOTE | 2018-07-25 07:57 | NUR ---
Report received from Marija GARCIA. Pt resting in bed with no complains and he denies any pain. Call light and personal items within reach.
--- NOTE | 2018-07-25 09:07 | NUR ---
PATIENT SITTING UP IN BED EATING BREAKFAST, RN IN ROOM. CALL LIGHT IN REACH. NO FURTHER NEEDS AT THIS TIME.
--- NOTE | 2018-07-25 09:09 | NUR ---
PT DENIES ANY PAIN. ABDUCTION SPLINT IN PLACE, CRYO CUFF WHICH IS FULL OF ICE WATER, JOSEMANUEL DRESSING RUNNING CORRECTLY, YULIANA HOSE ON, SCDS ON AND RUNNING AND HEEL PROTECTORS PLACED.
--- NOTE | 2018-07-25 10:23 | NUR ---
PT GOT UP TO THE COMMODE WITH ASSIST AND ATTEMPTED TO HAVE A BM WITHOUT SUCCESS. PT DID PASS SOME GAS. PT THEN HELPED TO THE RECLINER WITH 2PA AND FWW. CALL CARUSO WITHIN REACH.
--- NOTE | 2018-07-25 10:28 | NUR ---
PATIENT IN CHAIR, RN IN ROOM. CRYO CHECKED. CALL LIGHT IN REACH. NO FURTHER NEEDS AT THIS TIME.
--- NOTE | 2018-07-25 10:35 | NUR ---
PT 2PA WITH WALKER TO [facility]. REPORTED DIZZINESS UPON STANDING THAT RESOLVED QUICKLY. PT STEADY ON FEET AND TRANSFERRED TO COMMODE EASILY. PT ATTEMPTED BM, ONLY ABLE TO PASS GAS. PT 2PERSON MINIMAL ASSIST WITH WALKER TO RECLINER. FEET ELEVATED, CRYO CUFF IN PLACE. CALL LIGHT WITHIN REACH. PT DENIED PAIN WITH AMB.
--- NOTE | 2018-07-25 10:55 | NUR ---
Pt states he again feels that he needs to have a BM and was assisited to the commode with 2pa and fww.
--- NOTE | 2018-07-25 11:11 | NUR ---
Pt helped back to the bed after using the commode. He had a small hard stool. Pt declined when asked if he would sit in the chair again instead. Call wood in place, cryo, scds, tricia caicedo, heel protectors, on q all on and running. Pt continues to denie any pain.
--- NOTE | 2018-07-25 11:49 | NUR ---
Pt resting in his bed with no complaints at this time.
--- NOTE | 2018-07-25 12:28 | NUR ---
PT'S CRYO CUFF REFILLED WITH ICE AT THIS TIME. PT CONTINUES TO DENIE ANY PAIN.
--- NOTE | 2018-07-25 12:34 | NUR ---
Dr Sanchez to bedside checking on the pt.
--- NOTE | 2018-07-25 13:37 | NUR ---
PT SITTING IN CHAIR-ALERT AND ORIENTED. HE SEEMS TO BE ENJOYING THE SNOW AND LET ME KNOW HE GOT UP AND WALKED TODAY FOR THE FIRST TIME SINCE SURGERY. PT SEEMED EXCITED, ALSO EXPRESSED GREAT SATISFACTION IN DR MCDONALD. EXTENDED A BLESSING, WILL FOLLOW NEEDED
--- NOTE | 2018-07-25 14:24 | NUR ---
PT DENIES ANY PAIN AT THIS TIME.
--- NOTE | 2018-07-25 14:38 | NUR ---
PATIENT IN BED TALKING TO CASE MANAGEMENT. CRYO CHECKED. CALL LIGHT IN REACH. NO FURTHER NEEDS AT THIS TIME.
--- NOTE | 2018-07-25 17:05 | NUR ---
Pt eating dinner at this time and he has no complaints. Call wood within reach as well as his personal items.
--- NOTE | 2018-07-25 17:25 | NUR ---
PATIENT IN BED WATCHING TV. CRYO FILLED. CALL LIGHT IN REACH. NO FURTHER NEEDS AT THIS TIME.
--- NOTE | 2018-07-25 18:42 | NUR ---
Pt returned to his bed after a trip to the as he refused the recliner. Cryo on and running and full of ice water. SCDs, earnestine, on Q at 10 which was increased by Dr Barrington grace in the day. Abduction splint in place, pt refused the heel protectors. Earnestine dressing as a small amount of shadowing and remains intact. Pt had his paul removed and is now voiding without difficulty.
--- NOTE | 2018-07-25 19:27 | NUR ---
RECIEVED CHANGE OF SHIFT REPORT FROM SACHA GARCIA. PATIENT RESTING AWAKE IN BED. ON-Q PUMP STILL SET TO 10. JOSEMANUEL DRAIN FLASHING GREEN LIGHT. SMALL AMOUNT OF DRAINAGE PRESENT ON JOSEMANUEL DRESSING. CRYOCUFF IN PLACE. YULIANA HOSE AND SCDS IN PLACE. ABDUCTOR WEDGE IN PLACE. WHITE BOARD UPDATED. PATIENT DENIES PAIN. CALL LIGHT WITHIN REACH. NO MORE NEEDS AT THIS TIME.
--- NOTE | 2018-07-25 22:06 | NUR ---
ASSESSMENT COMPLETE. SCHEDULED MEDICATIONS ADMINSTERED PER JUL ORDER. SMALL AMOUNT OF DRY, RED DRAINAGE NOTED ON JOSEMANUEL DRESSING. JOSEMANUEL DRESSING INTACT, WITH GREEN LIGHT FLASHING. ON-Q PUMP STILL SET TO 10. PATIENT DENIES NUMBNESS AT INCISION SITE AND DENIES NUMBNESS AND TINGLING IN EXTREMITIES. YULIANA HOSE AND SCDS IN PLACE. PATIENT REFUSED HEEL PROTECTORS. ABDUCTOR WEDGE IN PLACE. PATIENT REPORTS "6/10" PAIN IN RLE/HIP, SCHEDULED PAIN MEDICATIONS ADMINISTERED PER JUL ORDER. URINAL AT BEDSIDE. IS AT BEDSIDE. PATIENT DENIES CHEST PAIN, SOB, OR DIFFCULTY BREATHING. CRYOCUFF IN PLACE. IV ASSESSED TO BE PATENT, WNL. CALL LIGHT WITHIN REACH. NO MORE NEEDS AT THIS TIME. PATIENT DENIES DEFICITS IN SENSATION.
--- NOTE | 2018-07-25 23:34 | NUR ---
ROUNDED ON PATIENT LAYING IN BED WITH EYES CLOSED, RESPIRATORY RATE IS EVEN AND UNLABORED. PATIENT AWOKE TO PHYSICAL STIMULI. PATIENT REPORTS PAIN IS A "2/10". REPOSITIONED PATIENT IN BED WITH ASSISTANCE FROM SUPERVISOR RICE MILLING. CALL LIGHT WITHIN REACH. NO MORE NEEDS AT THIS TIME.
--- NOTE | 2018-07-26 01:27 | NUR ---
ROUNDED ON PATIENT RESTING IN BED WITH EYES CLOSED, RESPIRATORY RATE IS EVEN AND UNLABORED. CPOX, WNL. CALL LIGHT WITHIN REACH. NASAL CANNULA IN PLACE.
--- NOTE | 2018-07-26 01:29 | NUR ---
ROUNDED ON PATIENT RESTING IN BED WITH EYES CLOSED, RESPIRATORY RATE IS EVEN AND UNLABORED. CALL LIGHT WITHIN REACH.
--- NOTE | 2018-07-26 04:07 | NUR ---
ROUNDED ON PATIENT RESTING IN BED WITH EYES CLOSED, RESPIRATORY RATE IS EVEN AND UNLABORED. NO SIGNS OF TENSING OR GRIMACING. CALL LIGHT WITHIN REACH.
--- NOTE | 2018-07-26 05:07 | NUR ---
REGULAR DIET. ROOM AIR. PT. 1200 ML FLUID RESTRICTION. YULIANA HOSE AND SCDs IN PLACE. PATIENT REFUSED HEEL PROTECTORS. NO PRN PAIN MEDICATION THIS SHIFT. SMALL AMOUNT OF DRY, RED DRAINAGE NOTED ON JOSEMANUEL DRESSING. JOSEMANUEL FLASHING GREEN LIGHT. ABDUCTOR WEDGE IN PLACE THROUGHOUT SHIFT. IS AT BEDSIDE. URINAL AT BEDSIDE. CRYOCUFF ON RIGHT HIP. ON-Q STILL SET TO 10.
--- NOTE | 2018-07-26 06:39 | NUR ---
ASSESSMENT COMPLETE. INTAKE & OUTPUT AND VITALS OBTAINED BY PRABHAKAR GARCIA. PATIENT DENIES PAIN, BUT STATES THAT PATIENT HAS "DULL" DISCOMFORT IN RIGHT HIP. NEW ICE PLACED IN CRYOCUFF. NO NEW DRAINAGED NOTED ON JOSEMANUEL DRESSING. IV ASSESSED, WNL. SCDs AND YULIANA HOSE IN PLACE. PATIENT REFUSED HEEL PROTECTORS. SCHEDULED MEDICATIONS ADMINISTERED PER JUL ORDER. ABDUCTOR WEDGE IN PLACE. CAPILLARY REFILL LESS THAN 2 SECONDS. IS AT BEDSIDE. URINAL AT BEDSIDE. NO MORE NEEDS AT THIS TIME.
--- NOTE | 2018-07-26 07:29 | NUR ---
REPORT RECEIVED FROM RADHA MUNOZ. PT AWAKE AND SITTING UPRIGHT IN BED. STATES HE SLEPT WELL LAST NIGHT AND IS FEELING GOOD THIS MORNING. DRESSING UNCHANGED FROM YESTERDAY.
--- NOTE | 2018-07-26 08:21 | NUR ---
TOOK PTS. BREAKFAST ORDER THIS A.M. HE WAS IN A PRETTY GOOD MOOD. CALL LIGHT IN PLACE
--- NOTE | 2018-07-26 08:28 | NUR ---
PATIENT SITTING UP IN BED EATING BREAKFAST. PATIENT REFUSED TO GET UP TO CHAIR. CALL LIGHT IN REACH. NO FURTHER NEEDS AT THIS TIME.
--- NOTE | 2018-07-26 11:40 | NUR ---
PATIENT IN BED LOOKING OVER FOOD MENU. SAYS HE IS EATING FINE. DOESN'T EAT A LOT AT ONCE. ASKED DR. PURI IF HE IS STILL ON THE FLUID RESTRICTION AND HE IS. 1200 ML/DAY. I TOLD DR. PURI THIS ISN'T IN THE DIET ORDER ANYMORE. HE SAID HE WILL LOOK INTO IT. OTHERWISE PATIENT ON A REGULAR DIET WHICH IS APPROPRIATE.
--- NOTE | 2018-07-26 13:05 | NUR ---
PT SITTING UP IN BED ALERT, ORIENTED AND DOING SOME PERSONAL GROOMING. HE APPEARS TO BE HAVING AN ENJOYABLE EXPERIENCE. GOOD VISIT, PT ACCEPTED A PRAYER QUILT AND THANKED ME FOR IT. WILL CONTINUE TO FOLLOW NEEDED
--- NOTE | 2018-07-26 13:09 | NUR ---
PT SITTING UPRIGHT IN BED WAITING FOR AFTERNOON BINDERY CHIEF. DECLINED TO GET UP TO RECLINER STATING THAT THE CHAIR IS NOT COMFORTABLE FOR HIM. ADMINISTERED MEDS
--- NOTE | 2018-07-26 15:47 | NUR ---
PT ASSISTED FROM RESTROOM BACK TO BED AFTER HAVING BM. STATES HE WILL LOOK AT MENU AND DECIDE WHAT TO HAVE FOR DINNER. DRESSING INTACT WITH GREEN LIGHT FLASHING. RATES PAIN 2\10.
--- NOTE | 2018-07-26 17:08 | NUR ---
PT GIVEN SALT TABS. DENIES MUCH PAIN OR DISCOMFORT. FINALLY GETTING WARM NOW WITH THE DOOR CLOSED. CRYO, SCDS IN PLACE.
--- NOTE | 2018-07-26 17:48 | NUR ---
PT DID QUITE WELL TODAY. WALKED IN [place] AND ROOM MULTIPLE TIMES. RATES PAIN 2\10. TOLERATING FLUID RESTRICTION. VS STABLE. DRESSING UNCHANGED WITH SMALL AMT DRY DRAINAGE. JOSEMANUEL GREEN LIGHT FLASHING.
--- NOTE | 2018-07-26 19:00 | NUR ---
CHARGE ROUNDING DONE. PATIENT RESTING IN BED. DENIES NEEDS AT THIS TIME. CALL LIGHT AND BEDSIDE TABLE WITHIN REACH.
--- NOTE | 2018-07-26 19:13 | NUR ---
IN ROOM FOR REPORT, PT IS AWAKE IN BED. HE DENIES NEEDS AND CALL LIGHT IS WITHIN REACH.
--- NOTE | 2018-07-26 21:37 | NUR ---
ASSESSMENT COMPLETE AND MEDICATIONS ADMINISTERED. PT DENIES PAIN AT THIS TIME. CRYO CUFF, ABD WEDGWE AND SCDS IN PLACE. PT DENIES FURTHER NEEDS AT THIS TIME. CALL LIGHT IS WITHIN REACH.
--- NOTE | 2018-07-26 22:59 | NUR ---
PT IS RESTING WITH EYES CLOSED, RESPIRATIONS ARE EVEN AND NONLABORED. CALL LIGHT IS CLOSE.
--- NOTE | 2018-07-27 00:40 | NUR ---
PT IS RESTING WITH EYES CLOSED, RESPIRATIONS ARE EVEN AND NONLABORED. CALL LIGHT IS CLOSE.
--- NOTE | 2018-07-27 03:03 | NUR ---
PT IS RESTING WITH EYES CLOSED, RESPIRATIONS ARE EVEN AND NONLABORED. CALL LIGHT IS WITHIN REACH.
--- NOTE | 2018-07-27 04:02 | NUR ---
PT IS RESTING WITH EYES CLOSED, RESPIRATIONS ARE EVEN AND NONLABORED. CALL LIGHT IS CLOSE.
--- NOTE | 2018-07-27 05:21 | NUR ---
PT IS AWAKE IN BED, HE DENIES PAIN AND HE DENIES NUMBESS AND TINGLING. CALL LIGHT IS CLOSE.
--- NOTE | 2018-07-27 05:38 | NUR ---
PT SLEPT WELL THROUGH THE NIGHT. HIS PAIN IS WELL CONTROLLED AND HE IS NOT REQUIRING OXYCODONE. HE IS A 1PA WITH FWW. IV IS SL. HE IS ON A REGULAR DIET WITH 1200MLS FLUID RESTRICTION. DRESSING ON RT HIP IS CDI WITH SMALL AMOUNT OF SHADOWING. JOSEMANUEL ON-Q DRESSING IS IN PLACE WITH GREEN LIGHT FLASHING AND CMS REMAINS INTACT. PT HAD SCDS, AES, CRYO CUFF AND ABD WEDGE IN PLACE ALL NIGHT BUT DENIES HEEL PROTECTORS. PT IS TO GO TO SWINGBED TODAY.
--- NOTE | 2018-07-27 05:40 | NUR ---
ADMINISTERED TYLENOL AND ASSISTED PT TO THE RESTROOM 1PA WITH FWW. ADVISED PT TO USE CALL LIGHT WHEN HE IS FINISHED TO GET HELP BACK TO BED.
--- NOTE | 2018-07-27 07:15 | NUR ---
Pt requested coffee and received 200ml. Fluid restriction of 1200ml/day. Pt verbalizes awareness of fluid restriction. 125ml of yellow urine voided in bedside urinal. No odor noted. Pt resting comfortably in bed.
--- NOTE | 2018-07-27 07:49 | NUR ---
REPORT RECIEVED FROM FIBER ARTIST RN. PT AWAKE IN BED. CRYOCUFF IN PLACE, ONQ AND PICCO INTACT ADN WNL. HEEL PROTECTORS IN PLACE. PT DENIES PAIN AT THIS TIME. CALL LIGHT IN REACH. NO FURTHER NEEDS .
--- NOTE | 2018-07-27 08:00 | NUR ---
AM medications administered. Pt able to take PO meds independently, without difficulty. CMS intact. Pablo hose and SCDs on. Shadowing present on JOSEMANUEL dressing. Pt received 200ml of free water. Pt educated that fluid would not be delivered again until noon. Pt denies any further needs at this time.
--- NOTE | 2018-07-27 08:20 | NUR ---
Pt ate 100% of breakfast independently, pt AAO X3, answers questions appropriately. No needs reported at this time.
--- NOTE | 2018-07-27 09:25 | NUR ---
Pt ambulated to toilet. Pt had a bowel movement. Unable to assess stool due to pt flushing toilet while seated. Educated pt on importance of leaving stool in toilet for assessment. Pt verbalized understanding for next bowel movement
--- NOTE | 2018-07-27 09:30 | NUR ---
Pt ambulated halls with PT. Pt reports pain of 5/10 while ambulating. After returning to bed, pt reports pain of 2/10, which is an acceptable level for him.
--- NOTE | 2018-07-27 10:43 | NUR ---
PT RESTING COMFORTABLY IN BED. ALERT, ORIENTED AND ENJOYING THE SUNSHINE. HE STATED THAT HE SLEPT WELL. VERY POSITIVE, EXTENDED A BLESSING AND WILL FOLLOW NEEDED
== END 2018-07-27 14:50 | disposition swing bed (61) | DRG 470 ==
LOC: ED 10:03 → CCU 12:35 → MS 12:35 → CCU 12:58 → MS 07-22 11:05 → CCU 07-22 11:05 → MS 07-22 11:05
PROVIDERS: ADMIT Specialist
PROC: 3E0T3BZ Introduction of Anesthetic Agent into Peripheral Nerves and Plexi, Percutaneous Approach (ICD-10-PCS; 2018-07-22)
PROC: 0SRR0JZ Replacement of Right Hip Joint, Femoral Surface with Synthetic Substitute, Open Approach (ICD-10-PCS; principal; 2018-07-24 08:00)
DX: S72.001A Fracture of unspecified part of neck of right femur, initial encounter for closed fracture (principal); E22.2 Syndrome of inappropriate secretion of antidiuretic hormone; G89.18 Other acute postprocedural pain; N40.0 Benign prostatic hyperplasia without lower urinary tract symptoms; K59.03 Drug induced constipation; I95.2 Hypotension due to drugs; K21.9 Gastro-esophageal reflux disease without esophagitis; F39 Unspecified mood [affective] disorder; T40.2X5A Adverse effect of other opioids, initial encounter; Z87.891 Personal history of nicotine dependence; Z79.899 Other long term (current) drug therapy; W18.30XA Fall on same level, unspecified, initial encounter; Y92.000 Kitchen of unspecified non-institutional (private) residence as the place of occurrence of the external cause; Y92.239 Unspecified place in hospital as the place of occurrence of the external cause
CPT/HCPCS: 01210; 36415; 51702; 64447; 71045; 72170; 73502; 76942; 80048; 80053; 81001; 83605; 83930; 83935; 84550; 85025; 85610; 87040; 93005; 93010; 97110; 97116; 97162; 99285-25; C1776; J0131; J0690; J0735; J1100; J1170; J1885; J2250; J2405; J2704; J2765; J3010; J7040; J7120

== ENCOUNTER 2018-07-27 08:36 | Inpatient (IN) | payer MEDICARE ==
[~2018-07-27] VITALS: Ht 188 cm; Wt 71.2 kg
[~2018-07-27 08:36] MED LIST: CITALOPRAM HBR20 MG PO; DAILY MULTIPLE1 EACH PO; FIBER0.52 GM PO; FLOMAX0.4 MG PO; FOLIC ACID-VIT1 EAC1 PO; MELADOX3 MG PO; OMEPRAZOLE20 MG PO; VITAMIN B-1100 M1 PO; VITAMIN C500 M5 PO
--- NOTE | 2018-07-27 15:30 | NUR ---
pt changedto swing bed. vital signs taken and stable. assessment completed.
--- NOTE | 2018-07-27 18:00 | NUR ---
SBA FWW TO BATHROOM. 1 MED BM AND UNMEASURED VOID. UP TO CHAIR WITH LEGS ELEVVATED, CRYOCUFF, TEDHOSE IN PLACE. PT WATCHING TV. DENIES PAIN AT THIS TIME. CALL LIGHT IN REACH. CRYOCUFF REFRESHED. ATE 100% OF DINNER. DENIES FURTHER NEEDS
--- NOTE | 2018-07-27 18:40 | NUR ---
PT CHANGED TO SWING TODAY. PAIN UNDER CONTROL WITH SCHEDULED MEDICAITONS AND ONQ. WORKINGWELL WITH PT AND OT. SBA WITH FWW. UPTO CHAIR FOR MEALS . SL RIGHT WRIST. PICCO INTACT WITH GREEN LIGHT FLASHING. TOLERATING REG DIET. BM TODAY. CMS INTACT. TEDHOSE, SCD'S AND CRYOCUFF.
--- NOTE | 2018-07-27 19:14 | NUR ---
IN ROOM FOR REPORT, PT IS AWAKE IN BED AND DENIES NEEDS AT THIS TIME. CALL LIGHT IS WITHIN REACH.
--- NOTE | 2018-07-27 19:30 | NUR ---
pt reporting pain in neck 07/10. prn oxycodone adminstered. call light in reach. scd's, tedhose, cryocuff in place. denies further needs,
--- NOTE | 2018-07-27 20:25 | NUR ---
VITALS DONE AND CHARTED. HELPED PT WITH ADJUSTING HIS SCD. BEDSIDE TABLE AND CALL LIGHT IN REACH.
--- NOTE | 2018-07-27 23:30 | NUR ---
PT WAS ANXIOUS THIS RN WAS VERY BUSY WITH OTHER PTS AND NOT ABLE TO GET INTO SEE HIM UNTIL 11PM. OTHER RNS HELPED AND ADMINISTERED MEDICATIONS AND ASSISTED HIM NEEDED. AT THIS TIME PT DENIES PAIN, DRESSING HAS DRIED DRAINAGE AND JOSEMANUEL GREEN LIGHT IS FLASHING. HE IS ALERT AND ORIENTED BUT FORGETFUL AT TIMES. HE HAS FRESH ICE IN CRYO, ABD WEDGE IN PLACE, YULIANA HOSE, SCDS AND HEEL PROTECTORS. HE IS READY FOR BED AND DENIES FURTHER NEEDS. CALL LIGHT IS WITHIN REACH.
--- NOTE | 2018-07-28 01:33 | NUR ---
PT IS RESTING WITH EYES CLOSED, RESPIRATIONS ARE EVEN AND NONLABORED. CALL LIGHT IS WITHIN REACH.
--- NOTE | 2018-07-28 03:12 | NUR ---
PT IS RESTING WITH EYES CLOSED, RESPIRATIONS ARE EVEN AND NONLABORED. CALL LIGHT IS CLOSE.
--- NOTE | 2018-07-28 04:56 | NUR ---
PT IS RESTING WITH EYES CLOSED, RESPIRATIONS ARE EVEN AND NONLABORED. CALL LIGHT IS WITHIN REACH.
--- NOTE | 2018-07-28 06:50 | NUR ---
IN ROOM TO ADMINISTER TYLENOL, PT DENIES FURTHER NEEDS. CALL LIGHT IS CLOSE.
--- NOTE | 2018-07-28 07:50 | NUR ---
PATIENT IN BED. FACE AND HANDS CLEANED. ICE WATER GIVEN. CALL LIGHT WITHIN REACH. NO OTHER NEEDS AT THIS TIME
--- NOTE | 2018-07-28 08:07 | NUR ---
MED REC COMPLETE
--- NOTE | 2018-07-28 08:12 | NUR ---
MORNING ASSESSMENT DONE. PATIENT DENIES NAUSEA, DENIES PAIN. ENCOURAGED PATIENT TO GET UP TO CHAIR FOR BREAKFAST AND RESPONSE, "I'LL GET UP TO THE CHAIR AFTER PHYSICAL THERAPY, THAT'S WHAT I USUALLY DO." PATIENT SITTING UPRIGHT IN BED FOR BREAKFAST. SALINE LOCK REMOVED. RIGHT HIP DRESSING INTACT WITH OLD DRY DRAINAGE, JOSEMANUEL GREEN LIGHT IS ON. CRYO CUFF IN PLACE AND IS COLD.
--- NOTE | 2018-07-28 09:00 | NUR ---
TALKED WITH PT THIS AM AND THIS AM HE WAS ABLE TO TELL ME HE SEES SOMEONE--DOESN'T KNOW THE NAME BUT SOMEONE AT THE CLINIC THERE. HE GAVE ME PERMISSION TO CALL AND ASK WHO ETC. I TALKED WITH HAYDEN WHO STATED THAT HE IS BEING SEEN BY BRAYAN WOODRUFF AT THE [facility] AND THAT HE BELONGS TO TEAM GUNNAR. SHE ALSO ASKED FOR ME TO SEND RECORDS OF HIS STAY FOR CONT OF CARE. FAXED FACE SHEET, ER NOTES AND SUMMARY, H AND P, CONSULT, OP NOTE, PROG NOTES, IMAGING AND PT NOTES. TOLD HER I WOULD.
--- NOTE | 2018-07-28 09:34 | NUR ---
PATIENT UP AMBULATING WITH PHYSICAL THERAPY.
--- NOTE | 2018-07-28 09:46 | NUR ---
PATIENT IN BED. PHYSICAL THERAPIST IN ROOM. VITAL SIGNS AND I&O DONE. PATIENT REFUSED SHOWER TODAY. CALL LIGHT WITHIN REACH. NO OTHER NEEDS AT THIS TIME
--- NOTE | 2018-07-28 11:12 | NUR ---
PATIENT RESTING IN BED, DENIES PAIN OR OTHER NEEDS.
--- NOTE | 2018-07-28 11:20 | NUR ---
ATTEMPTED TO [facility]X [facility] AND THE FA[facility] STATED THE LINE WAS BUSY. I WILL TRY LATER.
--- NOTE | 2018-07-28 13:00 | NUR ---
WITHIN THE LAST HOUR I FAXED CHART NOTES INCLUDING FACE SHEET, ER NOTES AND SUMMARY, H AND P, CONSULT, OP NOTE, PROG NOTES AND PT EVAL AND NOTES TO HAYDEN AT THE [facility], ALSO PER REQ OF THEM FAXED A [facility] AND NOTES TO THE [facility] COORDINATOR-PAULETTE, ALSO FAXED SAME NOTES TO [facility] TO PT PRIMARY CARE PERSON BRAYAN MARTINEZ TO BE INCLUDED FOR POSS HH AFTER DC FROM [facility] SWING BED.
--- NOTE | 2018-07-28 13:15 | NUR ---
PATIENT SITTING UP IN BED. I&O DONE. CALL LIGHT WITHIN REACH. NO OTHER NEEDS AT THIS TIME
--- NOTE | 2018-07-28 13:24 | NUR ---
PT IS LAYING IN BED, WATCHING TV. HE IS ALERT AND ORIENTED. PT ALWAYS TRIES TO BE POSITIVE AND HAVE A GOOD OUTLOOK. HE WAS ENJOYING THE SUNSHINE AND THANKED ME FOR COMING BY. EXTENDED A BLESSING
--- NOTE | 2018-07-28 13:46 | NUR ---
PATIENT GIVEN SCHEDULED TYLENOL, DENIES PAIN AT THIS TIME. DISCUSSED INCREASING ACTIVITY WITH PATIENT, ENCOURAGED MORE AMBULATION, AND GETTING UP TO CHAIR/DAILY SHOWER. PATIENT AGREED TO GET UP TO THE CHAIR FOR DINNER. DISCUSSED PATIENT REFUSING INCREASED ACTIVITY WITH ROCKET ENGINE TESTER WELL.
--- NOTE | 2018-07-28 14:30 | NUR ---
DURING MDT MEETING WE TALKED WITH THE EXPECTATIONS OF MEDICARE IE. UP TO CHAIR FOR MEALS, GETTING DRESSED DAILY, PARTICIPATING IN THERAPIES, IE PT OT AND ACTIVITIES, MAKING PROGRESS TOWARDS GOAL OF RETURNING HOME TO CARE FOR SELF.
--- NOTE | 2018-07-28 14:41 | NUR ---
ATTENDED SWING BED MTG. SEE SWING BED NOTE
--- NOTE | 2018-07-28 16:12 | NUR ---
PATIENT WORKED WITH PHYSICAL THERAPY. PATIENT REFUSED TO GET UP IN CHAIR FOR DINNER AND SAID, "NOPE, I'VE HAD ENOUGH FOR TODAY."
--- NOTE | 2018-07-28 16:46 | NUR ---
PATIENT IN BED WATCHING TV. SWING BED ACTIVITY OFFERED. PATIENT REFUSES TO PERFORM ANY ACTIVITY OFFERED TO SWING BED BECAUSE HE ONLY WANTS TO WATCH TV. CALL LIGHT WITHIN REACH. NO OTHER NEEDS AT THIS TIME
--- NOTE | 2018-07-28 17:31 | NUR ---
PATIENT IN BED. I&O DONE. CALL LIGHT WITHIN REACH. ICE WATER GIVEN. NO OTHER NEEDS AT THIS TIME
--- NOTE | 2018-07-28 19:30 | NUR ---
GETTING SHIFT REPORT. PATIENT IN BED WATCHING TV AND HAS NO NEEDS AT THIS TIME. CALL LIGHT IN REACH.
--- NOTE | 2018-07-28 20:26 | NUR ---
VITALS AND I&OS DONE AND CHARTED. CRYO FILLED. BEDSIDE TABLE AND CALL LIGHT IN REACH. PT NEEDS NOTHING MORE AT THIS TIME.
--- NOTE | 2018-07-28 20:29 | NUR ---
PATIENT IN BED WATCHING TV. RT HIP PAIN 5/10 AND REQUESTING MEDS. PM MEDS GIVEN ALONG WITH 5MG PO OXYCODONE. CRYO-CUFF IN PLACE, DRESSING DRY, TEDS ON, SCD'S ON, HEEL PROTECTORS ON. PM ASSESSMENT DONE. CALL LIGHT IN REACH.
--- NOTE | 2018-07-28 22:30 | NUR ---
PATIENT HAS NO MORE C/O PAIN AND IS SITTING IN BED WATCHING TV.
--- NOTE | 2018-07-29 00:40 | NUR ---
PATIENT STILL SITTING IN BED WATCHINGTV. I ASKED PATIENT IF HE WASIN NEED OF ANYTHINGAND AND HE WAS NOT. CALL LIGHT IN REACH.
--- NOTE | 2018-07-29 01:59 | NUR ---
PATIENTREMAINS IN BED WATCHING TV. CRYO IN PLACE. PATIENT HAS NO NEEDS. CALL LIGHT IN REACH.
--- NOTE | 2018-07-29 03:35 | NUR ---
PATIENT RESTING QUIETLY ON HIS LEFT SIDE, EYES CLOSED, RESPIRATIONS REGULAR AND EVEN AT 16.
--- NOTE | 2018-07-29 05:30 | NUR ---
PATIENT RESTING QUIETLY, EYES CLOSED RESPIRATIONS REGULAR AND EVEN, 5MG OXYCODONE GIVEN FOR RT HIP PAIN AT PMMED PASS, AND PATIENT HAS HAD NO MORE COMPLAINTS OF PAIN THIS SHIFT. WEDGE, SCD'D, TEDS, HEEL PROTECTORS ALL INPLACE AT THIS TIME.
--- NOTE | 2018-07-29 07:40 | NUR ---
REPORT RECEIVED FROM GLOVE FACTORY SEWER RN. PT OOB TO CHAIR FOR BREAKFAST. DENEIS PAIN AT THIS TIME. CRYOCUFF IN PLACE. TEDHOSE ON. CALL LIGHT IN REACH. 200ML OF COFFEE AND 200ML ON WATER PROVIDED. DENEIS FURTHER NEEDS.
--- NOTE | 2018-07-29 09:02 | NUR ---
PATIENT SITTING UP IN CHAIR. BEDBATH DONE. VITAL SIGNS AND I&O DONE. LINENS CHANGED. CALL LIGHT WITHIN REACH. PATIENT USING A CLEAN GOWN. NO OTHER NEEDS AT THIS TIME
--- NOTE | 2018-07-29 09:30 | NUR ---
PT UP FROM CHAIR WITH FWW TO WORK WITH PHYSICAL THERAPY. AMBULATING OUT IN HALLS. TOLERATING WELL.
--- NOTE | 2018-07-29 11:17 | NUR ---
PT LAYING COMFORTABLY IN BED, WATCHING TV. HE STATED HE HAD JUST GOT BACK IN BED-HE HAD BEEN UP AND ALSO SAT IN CHAIR. I ENCOURAGED HIM TO KEEP WORKING HARD. HE SAID HE PLANS TO-"I WANT TO GET BACK HOME SOON"! EXTENDED A BLESSING, WILL FOLLOW NEEDED
--- NOTE | 2018-07-29 11:31 | NUR ---
PATIENT WAS GIVEN DAILY NEWS PAPER. FOR A DAILY READING ACTIVTY FOR SWING BED.
--- NOTE | 2018-07-29 11:48 | NUR ---
pt up to chair with sba and fww for lunch. tolerated well. denies pain.
--- NOTE | 2018-07-29 13:25 | NUR ---
PATIENT IN BED WATCHING TV. I&O DONE. CALL LIGHT WITHIN REACH. NO OTHER NEEDS AT THIS TIME
--- NOTE | 2018-07-29 13:49 | NUR ---
PT IN BED AFTER PHYSICAL THERAPY. PAIN 0/10. CRYOOMAR BLEVINS, SCD'S IN PLACE. PT WATCHING TV. CALL LIGHT IN REACH.
--- NOTE | 2018-07-29 15:29 | NUR ---
DR MCDONALD CALLED WITH UPDATE ON PT. TELEPHONE ORDER FOR 1200ML FLUID RESTRICTION AND BMP IN AM. NO FURHTER ORDERS.
--- NOTE | 2018-07-29 17:41 | NUR ---
PATIENT IN BED WATCHING TV. I&O DONE. CALL LIGHT WITHIN REACH. NO OTHER NEEDS AT THIS TIME
--- NOTE | 2018-07-29 17:51 | NUR ---
PT IN BED, CRYOCUFF, SCD'S, TEDHOSE, AND ABDUCTOR WEDGE IN PLACE. CRYOCUFF REFRESHED. PICCO DRESSING WITH NO NEW DRAINAGE. CMS INTACT. GREEN LIGHT FLASHING ON PICCO. ON-Q PUMP WNL. CALL LIGHT IN REACH. PT WITHIN 1200 FLUID RESTRICTION. DENIES PAIN OR FURTHER NEEDS.
--- NOTE | 2018-07-29 18:33 | NUR ---
PT HAD GOOD DAY. PRN OXYCODONE GIVEN X1 FOR 4/10 PAIN, PT NEEDS ENCOURAGEDTO BE INDEPENDENT AND UP TO CHAIR FOR MEALS. CRYO, SCD'S, TEDHOSE, ABDUCTOR PILLOW ALL IN PLACE WHILE IN BED. UP TO CHAIR FOR MEALS. SBA WITH FWW. WORKED WELL WITH PT.
--- NOTE | 2018-07-29 20:20 | NUR ---
PATIENT IN BED. LEFT HIP, LEFT LEG, AND GONCALVES 2/10. 5MG OXYCODONE GIVEN IN PUDDING. PATIENT WATCHING TV. CALL LIGHT IN REACH.
--- NOTE | 2018-07-29 20:49 | NUR ---
PT RESTING IN BED.
--- NOTE | 2018-07-29 21:15 | NUR ---
SUPERVISOR TILE AND MOTTLE ROUNDING. PT LYING IN BED WATCHING TV. PT REQUESTS DOOR BE LEFT OPEN SO THAT HE "DOES NOT GET TOO WARM". PT DENIES FURTHER NEEDS AT THIS TIME. CALL LIGHT IN REACH.
--- NOTE | 2018-07-29 22:32 | NUR ---
PATIENT CALLED AND SAID HIS RIGHT HIP AND LEG WERE NOW HURTING AT 4/10 AND ANOTHER 5MG PO OXYCODONE GIVEN. PATIENT CONTINUES TO WATCH TV. JOSEMANUEL DRESSING FUNCTIONING. CALL LIGHT IN REACH.
--- NOTE | 2018-07-29 23:53 | NUR ---
PATIENT RESTING QUIETLY SUPINE, EYES CLOSED, RESPIRATIONS REGULAR AND EVEN AT A RATE OF 16.
--- NOTE | 2018-07-30 00:48 | NUR ---
PATIENT RESTING SUPINE, EYES CLOSED, RESPIRATIONS EVEN AND REGULAR AT A RATE OF 16.
--- NOTE | 2018-07-30 02:50 | NUR ---
PATIENT RESTING QUIETLY, RESPIRATIONS REGULAR AND EVEN AT 16, EYES CLOSED, HOB AT 30 DEGREES, CALL LIGHT IN REACH.
--- NOTE | 2018-07-30 05:21 | NUR ---
PATIENT AWAKE MOST OF THE FIRST HALF OF THE SHIFT. PATIENT HAD 5MG OXYCODONE FOR 2/10 PAIN TO THE RIGHT HIP AT EVENING MED PASS, AND THEN NEEDED ANOTHER 5MG WHEN HIS HIP PAIN INCREASED TO 4/10. THEN PATIENT SPENT MOST OF THE NIGHT RESTING QUIETLY, EYES CLOSED, RESPIRATIONS REGULAR AND EVEN WITH WITH A RATE OF 16-18. CALL LIGHT IN REACH.
--- NOTE | 2018-07-30 07:42 | NUR ---
REPORT RECEIVED FROM PERFORATING MACHINE OPERATOR RN. PT IN BED AWAKE. CRYOCUFF, SCD'S, TEDHOSE IN PLACE. DENEIS PAIN. CALL LIGHT IN REACH.
--- NOTE | 2018-07-30 08:03 | NUR ---
SBA WITH FWW TO CHAIR FOR BREAKFAST. PT TOLERATED WELL. CALL LIGHT IN REACH. DENIES FURTHER NEEDS. NO PAIN.
--- NOTE | 2018-07-30 10:06 | NUR ---
PT OUT AMBULATING HALLS WITH PHYSICAL THERAPY.
--- NOTE | 2018-07-30 12:00 | NUR ---
PT UP TO CHAIR FOR LUNCH.
--- NOTE | 2018-07-30 15:03 | NUR ---
SBA TO BATHROOM TO VOID. TOLERATED WELL. UP TO CHAIR. CRYOCUFF REFRESHED. DENIES NEEDS.
--- NOTE | 2018-07-30 16:00 | NUR ---
PT OUT TO [place] WITH BIOMASS PRODUCTION MANAGER TO AMBULATE. ABLE TO DO ONE BIG LAP AND ONE SMALL LAP. BACK TO BED WITH CRYO, SCD'S, TEDHOSE IN PLACE. CALL LIGHT IN REACH.
--- NOTE | 2018-07-30 17:29 | NUR ---
PT SBA WITH FWW TO CHAIR FOR DINNER. 200 ML WATER GIVEN. DENIES FURTHER NEEDS. DENIES PAIN. CALL LIGHT IN REACH
--- NOTE | 2018-07-30 19:42 | NUR ---
PATIENT SITTING IN BED WATCHING TV. DENIES PAIN. CALL LIGHT IN REACH.
--- NOTE | 2018-07-30 20:15 | NUR ---
[employer] HELPER ROUNDING. PT RESTING IN BED WATCHING TV. PT DENIES NEEDS AT THIS TIME. CALL LIGHT IN REACH.
--- NOTE | 2018-07-30 20:49 | NUR ---
PATIENT RESTING QUIETLY IN BED SEMI-FOWLERS POSITION WATCHING TV. HIP PAIN 06/09. CALL LIGHT IN REACH.
--- NOTE | 2018-07-30 23:00 | NUR ---
PATIENT IS RESTING QUIETLY, REPIRATIONS REGULAR AND EVEN AT 16, EYES CLOSED, CALL LIGHT IN REACH.
--- NOTE | 2018-07-31 00:05 | NUR ---
PATIENT HAS NO NEEDS AT THIS TIME AND IS LAYING IN BED WATCHING TV.
--- NOTE | 2018-07-31 00:19 | NUR ---
PATIENT GIVEN 10MG OXYCODONE PO FOR RIGHT HIP PAIN OF 4/10. PILLS GIVEN IN PUDDING. URINAL EMPTIED. CALL LIGHT IN REACH.
--- NOTE | 2018-07-31 02:10 | NUR ---
PATIENT RESTING QUIETLY SUPINE WITH HEAD OF BED SLIGHTLY ELEVATED. EYES CLOSED, RESPIRATIONS REGULAR AND EVEN AT 16. CALL LIGHT IN REACH.
--- NOTE | 2018-07-31 04:03 | NUR ---
PATIENT RESTING QUIETLY, RESPIRATIONS REGULAR AND EVEN AT 16, EYES CLOSED, CALL LIGHT IN REACH.
--- NOTE | 2018-07-31 04:54 | NUR ---
PATIENT HAS REST WELL MOST OF THE NIGHT. JOSEMANUEL DRESSING STILL HAS THE SAME SHADOWING AND IS RUNNING WITH GREEN LIGHT FLASHING. PATIENT CALLED JUST AFTER MIDNIGHT WITH 4/10 RIGHT HIP PAIN AND GOT 10MG OXYCODONE AND THEN RESTED QUIETLY THE REST OF THE NIGHT UP TO THIS POINT. SCD'D IN PLACE. PATIENT NOT COMPLIANT WITH LEG WEDGE AND SAYS HE CAN'T SLEEP WITH IT THERE. PATIENT MAINTAINING FLUID RESTRICTION AND VOIDING INTO THE URINAL ON HIS OWN. CALL LIGHT IS IN REACH.
--- NOTE | 2018-07-31 06:12 | NUR ---
PATIENT WATCHING TV AND GIVEN AM MEDS.
--- NOTE | 2018-07-31 07:10 | NUR ---
RECEIVED REPORT FROM SUPERVISOR COFFEE RN. PT IN BED AWAKE. CRYO CUFF SCD, TEDHOSE IN PLACE. DENIES NEEDS. CALL LIGHT IN REACH.
--- NOTE | 2018-07-31 07:43 | NUR ---
SBA WITH FWW TO CHAIR FOR BREAKFAST.
--- NOTE | 2018-07-31 12:35 | NUR ---
PT UP TO CHAIR FOR LUNCH. ATE 100%. TOLERATED WELL.
--- NOTE | 2018-07-31 16:00 | NUR ---
PT OUT TO [place] FOR WALK WITH MACHELLE CRUZ. PT ABLE TO WALK 1 AND 1/2 LAP WITHOUT BREAK. TOERATED WELL. DENIED PAIN.
--- NOTE | 2018-07-31 19:10 | NUR ---
SHIFT REPORT RECEIVED. PATIENT RESTING IN BED. CALL LIGHT IN REACH.
--- NOTE | 2018-07-31 20:40 | NUR ---
EVENING MEDS GIVEN. PATIENT AAOX3. REPORTS 3/10 THROBBING PAIN IN RIGHT LEG/HIP. SCHEDULED MEDS PROVIDED. CRYO IN PLACE. ON-Q PUMP REMOVED PER ORDER. JOSEMANUEL DRESSING STILL WORKING AT THIS TIME. CMS INTACT IN BALJIT LOWER EXTREMITIES. LUNGS CLEAR. NO NAUSEA, ABD SOFT AND NONTENDER. NO IV SITE. PATIENT DENIES FURTHER NEEDS AT THIS TIME.
--- NOTE | 2018-07-31 22:30 | NUR ---
PATIENT REPORTS 4/10 PAIN, PRN OXY PROVIDED PER REQUEST. PATIENT'S JOSEMANUEL DRESSING HAS STOPPED FUNCTIONING. REMOVED DRESSING. PLACED MEPILEX AND OBSITE OVER THE WOUND. EDGES OF WOUND ARE WELL APPROXIMATED AND JAMAAL INTACT. PATIENT DENIES FURTHER NEEDS. CALL LIGHT IN REACH.
--- NOTE | 2018-07-31 23:18 | NUR ---
PATIENT CALLED NEED HELP. CLEANED /WIPED PERIANAL, CHANGED PANTS AND PULL UPS. NO OTHER NEEDS. CALL LIGHT AND SIDE TABLE IN REACH.
--- NOTE | 2018-08-01 00:30 | NUR ---
PATIENT REQUEST HIS DOOR BE CLOSED, WHICH WAS DONE. PATIENT DENIES ANY OTHER NEEDS AT THIS TIME. CALL LIGHT IN REACH.
--- NOTE | 2018-08-01 01:00 | NUR ---
PATIENT REQUEST HIS DOOR BE OPENED, WHICH WAS DONE FOR HIM. PATIENT IN BED WATCHING TV. DENIES NEEDS AT THIS TIME. CALL LIGHT IN REACH.
--- NOTE | 2018-08-01 03:30 | NUR ---
PATIENT APPEARS TO BE SLEEPING. RR 18. CALL LIGHT IN REACH.
--- NOTE | 2018-08-01 05:00 | NUR ---
PATIENT RESTING IN BED. SPIRAL SPRING WINDER PROVIDED HIM WITH FRESH WATER. DENIED PRN PAIN MEDS AT THIS TIME. CRYO IN PLACE.
--- NOTE | 2018-08-01 06:34 | NUR ---
PATIENT SLEPT OFF AND ON THROUGHOUT THE SHIFT. PRN PAIN MEDS X1. JOSEMANUEL AND ON-Q PUMP REMOVED YESTERDAY PER ORDER. SITE APPEARED TO BE HEALING WELL, EDGES WELL APPROXIMATED WITH JAMAAL IN PLACE. COVERED WITH MEPILEX AND OBSITE. SBA W/FWW. REGULAR DIET WITH FLUID RESTICTION. SWING BED STATUS FOR PT.
--- NOTE | 2018-08-01 07:05 | NUR ---
PT IN BED, AWAKE, ALERT. RECIEVED BEDSIDE REPORT FROM RADHA ALLEN. PT HAS PERSONAL SUPPLIES AND CALL BUTTON IN REACH.
--- NOTE | 2018-08-01 08:01 | NUR ---
PT SITTING UP IN RECLINER. AM ASSESSMENT DONE, AM MEDICATIONS GIVEN TO PT. PT RATES PAIN TO RIGHT HIP AND LEG 2/10, REPORTS THIS IS TOLERABLE. DENIES NEEDS. PT PROVIDED WITH FRESH ICE WATER. PERSONAL SUPPLIES AND CALL LIGHT IN REACH.
--- NOTE | 2018-08-01 08:38 | NUR ---
PATIENT UP IN CHAIR EATING BREAKFAST. PATIENT REFUSED LINEN CHANGE. CALL LIGHT IN REACH. NO FURTHER NEEDS AT THIS TIME.
--- NOTE | 2018-08-01 08:52 | NUR ---
PATIENT UP IN CHAIR RESTING. CRYO FILLED. CALL LIGHT IN REACH. NO FURTHER NEEDS AT THIS TIME.
--- NOTE | 2018-08-01 11:34 | NUR ---
PT IN BED. REPORTED THAT HE AMBULATED THIS AM WITH THERAPY, AROUND LOOP X 2. PT REPORTED THAT HE TOLERATED AMBULATION WELL. DENIED NEEDS. HAS PERSONAL SUPPLIES AND CALL LIGHT IN REACH.
--- NOTE | 2018-08-01 11:44 | NUR ---
PATIENT UP TO CHAIR FROM BED, 1PA FWW. CALL LIGHT IN REACH. NO FURTHER NEEDS AT THIS TIME.
--- NOTE | 2018-08-01 13:37 | NUR ---
PT IN BED. REPORTED THAT HE AMBULATED IN HALLWAYS WITH PHYSICAL THERAPY FOR GREATER THAN 6 MINUTES WITH NO REST BREAKS, THEN EXERCISED IN THERAPY ROOM FOR A TIME AFTER AMBULATION. PT HAS PERSONAL SUPPLIES AND CALL LIGHT IN REACH.
--- NOTE | 2018-08-01 14:18 | NUR ---
PT ONLY HAD 100 OUT FOR URINE IN BETWEEN 10 AM AND NOW AND I ASKED HIM IF HE HAD GONE ANYMORE AND HE SAID HES GONE A COUPLE OF TIMES. NOT MARKED ON THE BOARD, BUT PT STATES HES GONE MORE THAN ONCE. PT IS CONCERNED ABOUT HIS DISCHARGE DATE AND WOULD LIKE TO KNOW A CONFIRMED DATE OF DISCHARGE THAT WAY HE CAN LET HIS SISTER KNOW.
--- NOTE | 2018-08-01 14:31 | NUR ---
PT UP AND AMBULATING IN [place]. HE SEEMED RATHER EXCITED TO BE UP AND MOVING UP AND DOWN THE [place]. HE STATED HE WAS LOOKING FORWARD TO WALKING IN HIS OWN HOME. PLEASANT, ALERT AND ORIENTED. WILL FOLLOW NEEDED
--- NOTE | 2018-08-01 15:25 | NUR ---
PT IN BED, WATCHING TV. DENIED NEEDS. PERSONAL SUPPLIES AND CALL LIGHT IN REACH.
--- NOTE | 2018-08-01 17:57 | NUR ---
PT DOING WELL, PARTICIPATED IN THERAPY X 2 THIS SHIFT. PAIN WELL CONTROLLED WITH SCHEDULED MEDICATIONS PER PT. MEPILEX AND OPSITE DRESSING C/D/I TO RIGHT HIP.
--- NOTE | 2018-08-01 19:05 | NUR ---
SHIFT REPORT RECEIVED. PATIENT RESTING IN BED. DAY SHIFT RN PROVIDED PRN PAIN MEDS. CALL LIGHT IN REACH.
--- NOTE | 2018-08-01 19:07 | NUR ---
PT C/O 310 RIGHT HIP PAIN. GAVE OXYCODONE 5 MG PO PRN.
--- NOTE | 2018-08-01 21:10 | NUR ---
PATIENT PROVIDED WITH SCHEDULED MEDS. REPORTS PAIN 2/10 DULL ACHE IN RIGHT HIP. DRESSING CDI. CMS INTACT. CRYO IN PLACE, ICE FULL. PUDDING PROVIDED. PATIENT DENIES FURTHER NEEDS AT THIS TIME. CALL LIGHT IN REACH.
--- NOTE | 2018-08-01 23:00 | NUR ---
PATIENT APPEARS TO BE SLEEPING SOUNDLY. RR 18. CALL LIGHT IN REACH.
--- NOTE | 2018-08-02 02:08 | NUR ---
PATIENT APPEARS TO BE SLEEPING SOUNDLY. RR 18. CALL LIGHT IN REACH.
--- NOTE | 2018-08-02 06:24 | NUR ---
PATIENT SLEPT ON AND OFF THIS SHIFT. PAIN WELL CONTROLED. NO PRN PAIN MEDS REQUIRED. CRYO IN USE. RIGHT HIP DRESSING, MEPILEX & OBSITE. NO DRAINAGE. SCDS AND HEEL PROTECTORS WHILE IN BED. AMULATES WITH 1PA FWW. WORKING WITH PT/OT. SWING BED STATUS. REGULAR DIET, 1200 FLUID RESTRICTION.
--- NOTE | 2018-08-02 07:18 | NUR ---
RECIEVED BEDSIDE REPORT FROM RADHA ALLEN. PT IN BED. DENIED NEEDS AT THIS TIME. PERSONAL SUPPLIES AND CALL LIGHT IN REACH.
--- NOTE | 2018-08-02 08:29 | NUR ---
PT SITTING UP IN RECLINER. DENIES PAIN. DRESSING TO RIGHT HIP C/D/I. CMS INTACT. PT TOLERATED 100% OF BREAKFAST, DENIED NAUSEA. AM ASSESSMENT COMPLETE. PT'S PERSONAL SUPPLIES AND CALL LIGHT IN REACH.
--- NOTE | 2018-08-02 10:38 | NUR ---
PT UP, WORKING WITH PHYSICAL THERAPY.
--- NOTE | 2018-08-02 11:51 | NUR ---
PT SITTING IN CHAIR, ALERT AND ORIENTED. SEEMED RATHER ANXIOUS FOR P.T. TO COME FOR AM SESSION. PLEASANT, THANKED ME FOR STOPPING BY AND REMINDED HIM OF HIS GOAL. WILL CONTINUE TO FOLLOW
--- NOTE | 2018-08-02 13:28 | NUR ---
PT IN BED. DRESSING TO RIGHT HIP REMAINS C/D/I, CMS TO RLE INTACT. PT RATED PAIN 1/10 TO RIGHT HIP. DENIED NEEDS. PERSONAL SUPPLIES AND CALL LIGHT IN REACH.
--- NOTE | 2018-08-02 17:07 | NUR ---
CHAD COMPLETED WITH PT HELP. LINENS CHANGED. PT COMFORTABLE.
--- NOTE | 2018-08-02 18:33 | NUR ---
PT DOING WELL, WORKED WITH PHYSICAL THERAPY X 2 THIS SHIFT. UP WITH FWW WITH STANDBY ASSIST, TOLERATED AMBULATION IN ROOM AND IN HALLS WELL. REPORTED PAIN WELL CONTROLLED WITH SCHEDULED MEDICATIONS. DENIED NEED FOR PRN ANALGESIA THUS FAR THIS SHIFT. URINE OUTPUT QUANTITY SUFFICIENT. MEPILEX AND OPSITE DRESSING TO RIGHT HIP C/D/I, AND CMS TO RLE INTACT.
--- NOTE | 2018-08-02 18:34 | NUR ---
PT RESTING IN BED AFTER DINNER ALERT AND ORIENTED WATCHING TV.
--- NOTE | 2018-08-02 19:10 | NUR ---
PATIENT REQUEST PRN PAIN MEDS FROM NANCY PARIS. THIS MESSAGE WAS GIVEN TO THIS RN DURING REPORT. WHEN IN THE ROOM DISCUSSED PATIENT'S PAIN, WHICH IS 06/09. DISCUSSED SCHEDULED PAIN MEDICATION DUE AT 1999 AND ASSURED PATIENT THIS WOULD BE GIVEN SOON AFTER REPORT WAS FINISHED. PATIENT AGREEABLE TO THIS BUT STATES "I DON'T KNOW WHAT I DID TO PEOPLE TO UPSET THEM AND THEY MAKE ME WAIT". ASSURED PATIENT THIS WAS NOT THE CASE AND THAT HIS PAIN WAS IMPORTANT. PATIENT STATES HE CAN WAIT UNTIL SCHEDULED PAIN MEDS AVAILABLE.
--- NOTE | 2018-08-02 20:00 | NUR ---
SCHEUDLED MEDS PROVIDED. PATIENT REPORTS PAIN 06/09. PATIENT IS ANXIOUS ABOUT KNOWING WHEN HE WILL GET HIS MEDS, DISCUSSED PLAN OF CARE WITH PATIENT AND HE IS AGREEABLE. PATIENT APPEARS MORE CALM AFTER THIS DISCUSSION. DRESSING ON RIGHT HIP CDI. CRYO IN PLACE. CMS INTACT. NO OTHER NEEDS AT THIS TIME. CALL LIGHT IN REACH.
--- NOTE | 2018-08-02 22:00 | NUR ---
DROP FORGER PROVIDED SCHEDULED MEDS FOR PATIENT.
--- NOTE | 2018-08-02 23:52 | NUR ---
PATIENT APPEARS TO BE SLEEPING SOUNDLY. RR 18.
--- NOTE | 2018-08-03 01:22 | NUR ---
RECEVIED REPORT FROM TIFFANY GARCIA. PATIENT IS RESTING IN BED WITH EYES CLOSED, RR 17. CALL LIGHT IN REACH.
--- NOTE | 2018-08-03 03:14 | NUR ---
PATIENT IS RESTING IN BED WITH EYES CLOSED, RR 18. CALL LIGHT IN REACH.
--- NOTE | 2018-08-03 04:36 | NUR ---
PATIENT IS ON A REGULAR DIET, TOLERATING WELL, AND NO COMPLAINTS OF NAUSEA. PATIENT IS ON SWING BED STATUS FOR PT/OT. PATIENT IS A SBA W/FWW AND TOLERATES AMBULATION WELL. PATIENT HAS MEPILEX WITH OPSITE ON RIGHT HIP, DRESSING IS C/D/I. PATIENT LIKES TO TAKE HIS PILLS IN PUDDING. PATIENT DID NOT REQUIRE ANY PRN PAIN MEDICATION. PATIENT IS AAOX3 BUT IS SOMETIMES FORGETFUL. PATIENT USES CALL LIGHT APPROPRIATELY.
--- NOTE | 2018-08-03 06:22 | NUR ---
PATIENTS MORNING MEDCATIONS GIVEN PER ORDER. PATIENT DENIES ANY PAIN. PATIENTS CRYO REFILLED. INTAKE AND OUPUT RECORDED. PATIENT DENIES ANY NEEDS CALL LIGHT IN REACH.
--- NOTE | 2018-08-03 07:28 | NUR ---
RECIEVIED BEDSIDE REPORT FROM RADHA STOVER. PT IN BED, AWAKE, ALERT. PERSONAL SUPPLIES AND CALL LIGHT IN REACH. PT DENIED PAIN.
--- NOTE | 2018-08-03 09:04 | NUR ---
PATIENT DIDN'T WANT TO GET UP FOR BREAKFAST. WARM WASH CLOTH OFFERED FOR PATIENT TO WASH HIS FACE.
--- NOTE | 2018-08-03 10:34 | NUR ---
PT IN BED. AWAKE, ALERT. REPORTS PAIN IS WELL CONTROLLED. DENIES NEEDS AT THIS TIME. PERSONAL SUPPLIES AND CALL LIGHT IN REACH.
[2018-08-03] MEDS ORDERED: TYLENOL EXTRA500 MG PO (11:12)
[2018-08-03] MEDS ORDERED: OXYCODONE HCL5 MG PO (11:12)
[2018-08-03] MEDS ORDERED: XARELTO10 MG PO (11:12)
[2018-08-03] MEDS ORDERED: CELECOXIB200 MG PO (11:12)
--- NOTE | 2018-08-03 12:07 | NUR ---
GAVE PT DISCHARGE INSTRUCTIONS. QUESTIONS ASKED AND ANSWERED. PT VERBALIZED UNDERSTANDING. PT HAS NO IV ACCESS. VS OBTAINED, WNL.
--- NOTE | 2018-08-03 15:15 | NUR ---
FAXED CHART NOTES AND ORDER TO [facility] INCLUDING FACE SHEET, ORDER, H AND P, PROG NOTE, DC NOTE, PT AND OT EVAL AND NOTES TO [facility]. RECIEVED FAX CONFIRMATION OF THIS.
--- NOTE | 2018-08-04 07:45 | DS ---
[facility] [address] [place], [place] [address] Signed ADMISSION DATE: 07/27/2018 DISCHARGE DATE: 08/03/2018 ADMISSION DIAGNOSIS: Right hip fracture, status post bipolar hemiarthroplasty. DISCHARGE DIAGNOSIS: Right hip fracture, status post bipolar hemiarthroplasty. PROCEDURE PERFORMED DURING THIS HOSPITALIZATION: None. BRIEF HISTORY/HOSPITAL COURSE: Phoenix is a 72-year-old gentleman, who had a ground level fall fracturing his hip. He underwent uneventful bipolar hemiarthroplasty, however he continued to be weak, was unable to take care of himself at home. He was switched to swing bed and has continued to progress with physical therapy and is doing excellent with his ambulation in addition to stairs. He was kept on pain medication of oxycodone and Celebrex and did very nicely. He was kept on DVT prophylaxis of SCDs, TEDs, and Xarelto 10 mg p.o. daily. He will be kept on Xarelto for another two weeks. He was discharged with pain medications and stool softeners. He will be switched to outpatient physical therapy and follow up with me in 10 to 14 days. James Ferris MD BA/TANIA /[id number] Copies: ~ Electronically Signed By: JAMES FERRIS MD 08/04/18 0745 PATIENT NAME: PHOENIX SERNA DISCHARGE SUMMARY DATE OF : 49 REPORT #: [id number] PHYSICIAN: JAMES FERRIS MD PCP: LEONCIO MARTINEZ REPORT IS CONFIDENTIAL AND NOT TO BE RELEASED WITHOUT AUTHORIZATION
== END 2018-08-03 12:45 | disposition home or self-care (01) | DRG 561 ==
LOC: MS 08:36
PROVIDERS: ADMIT Specialist
DX: S72.001D Fracture of unspecified part of neck of right femur, subsequent encounter for closed fracture with routine healing (principal); R53.1 Weakness; W18.30XD Fall on same level, unspecified, subsequent encounter; Z96.641 Presence of right artificial hip joint
CPT/HCPCS: 36415; 80048; 97110; 97116; 97162; 97165; 97530; 97535